=== PATIENT | female | born 1970 | race Caucasian/White ===

== ENCOUNTER → 2017-06-21 | Outpatient (CLI) | payer OTHER ==
--- NOTE | 2017-06-21 08:52 | US ---
EXAMINATION TYPE: US abdomen complete DATE OF EXAM: 06/21/2017 COMPARISON: Gallbladder US 10/20/2016 CLINICAL HISTORY: R19.04 Left lower quadrant abd swelling mass lump. EXAM MEASUREMENTS: Liver Length: 20.4 cm Gallbladder Wall: Surgically absent CBD: .7 cm Spleen: 111.0 cm Right Kidney: 14.4 x 5.9 x 5.3 cm Left Kidney: 13.2 x 6.4 x 7.2 cm Pancreas: wnl Liver: Enlarged, Increased attenuation, decreased visualization of vessels suggestive of fatty infil trate Gallbladder: Surgically absent Evidence for sonographic Patiño's sign: no CBD: wnl Spleen: wnl Right Kidney: 1.8 x 1.7 x 2.1 probable cyst Mid, medial aspect of kidney Left Kidney: 5.8 x 4.8 x 5.4 cyst upper pole; 3.4 x 3.6 x 3.8 cm cyst mid, lateral aspect Upper IVC: wnl Abd Aorta: wnl as seen Technically challenging due to larger body habitus. Patient indicated lump below umbilicus at scar; no break seen in abdominal wall at rest or during crunch maneuver. IMPRESSION: 1. Bilateral hypoechoic renal lesions are seen by previous CT scan and suggestive of renal cysts. Hyp oechoic nodule on the right does not meet the criteria of a simple cyst by ultrasound which is felt t echnical. 2. No diagnostic evidence of hernia. Correlate with CT scan as clinically warranted.
== END | disposition home or self-care (01) ==
LOC: RADUSWWP 07:39
PROVIDERS: ATTEND Family Medicine
DX: R16.0 Hepatomegaly, not elsewhere classified (principal)
CPT/HCPCS: 76700

== ENCOUNTER → 2017-07-09 | Outpatient (CLI) | payer OTHER ==
--- NOTE | 2017-07-09 10:49 | CT ---
EXAMINATION TYPE: CT abdomen pelvis w con DATE OF EXAM: 07/09/2017 COMPARISON: NONE HISTORY: Left lower quadrant abdominal swelling, mass and lump CT DLP: 3830 mGycm Automated exposure control for dose reduction was used. CONTRAST: CT scan of the abdomen pelvis is performed with IV Contrast, patient injected with 100 mL of Omnipaqu e 300. FINDINGS- LUNG BASES- No significant abnormality is appreciated. LIVER/GB-previous cholecystectomy clips are noted. Liver measures 24 cm and appears to be enlarged. PANCREAS- No gross abnormality is seen. SPLEEN- No gross abnormality is seen. Accessory spleen noted. ADRENALS- No gross abnormality is seen. KIDNEYS/BLADDER-there are 3 right-sided renal calculi all measuring less than 5 mm with no evidence o f obstruction. There are multiple hypodense lesions involving both kidneys largest on the left upper pole measuring 6 cm and 2 Hounsfield units compatible simple cyst. Smaller lesions are too small to accurately elvis cterize.. There are 2 left-sided renal calculi measuring less than 5 mm with no obstruction. BOWEL-nonspecific gas pattern. Suspect a duodenal diverticulum involving the third portion duodenum. LYMPH NODES- No greater than 1cm abdominal or pelvic lymph nodes are appreciated. OSSEOUS STRUCTURES- No significant abnormality is seen. OTHER- subcentimeter hypodensities within the left adnexa likely related to left ovarian follicles o r cysts. Aorta of normal caliber. 1.4 cm splenic artery aneurysm incidentally noted. Small fat-containing. Umbilical hernia. Additionally within the anterior subcutaneous tissues at the level along the upper margin of the bladder is a poorly defined fatty attenuation measuring 4.7 x 3.5 cm. There is an ill-defined attenuation crosses the anterior abdominal wall may represent mild infla mmatory change. This could represent extension of a small hernia sac. A lipoma also the differential diagnosis correlate clinically. IMPRESSION- 1. Within the anterior subcutaneous tissues at the level along the upper margin of the bladder is a p oorly defined fatty attenuation measuring 4.7 x 3.5 cm. There is an ill-defined attenuation crosses t he anterior abdominal wall may represent mild inflammatory change. This could represent extension of a small hernia sac as there appears to be a fascial defect noted on sagittal image 61. Correlate for pain as there appears to be mild increased attenuation suggestive of mild inflammatory change. No bow el contained within the suspected hernia sac. A lipoma less likely consideration but also in the diff erential diagnosis correlate clinically. 2. Nonobstructing bilateral renal calculi with multiple bilateral renal lesions as discussed above. 3. Hepatomegaly
== END | disposition home or self-care (01) ==
LOC: RADCTMAIN 07:46
PROVIDERS: ATTEND Family Medicine
DX: N20.0 Calculus of kidney (principal); N28.9 Disorder of kidney and ureter, unspecified; R16.0 Hepatomegaly, not elsewhere classified
CPT/HCPCS: 74177; Q9967

== ENCOUNTER → 2017-10-15 | Outpatient (CLI) | payer OTHER ==
[2017-10-15 09:50] LABS: Basophils # (A) 0.1 k/uL (0-0.2); Basophils % (A) 1 %; CH 31.5; CHCM 33.3; Eosinophils # (A) 0.5 k/uL (0-0.7); Eosinophils % (A) 5 %; HCT 51.9 % (34.0-46.0); Luc % (Auto) 1; Lymphocytes # (A) 2.8 k/uL (1.0-4.8); Lymphocytes % (A) 27 %; MCH 31.2 pg (25.0-35.0); MCHC 32.8 g/dL (31.0-37.0); Mean Platelet Volume 7.5; Monocytes # (A) 0.5 k/uL (0-1.0); Monocytes % (A) 5 %; Neutrophils # (A) 6.4 k/uL (1.3-7.7); Neutrophils % (A) 62 %; RBC 5.46 m/uL (3.80-5.40); RDW 14.2 % (11.5-15.5); WBC 10.4 k/uL (3.8-10.6); WBC (Perox) 10.04
== END | disposition home or self-care (01) ==
LOC: LABWHC1 08:36
PROVIDERS: ATTEND Surgery
DX: Z01.810 Encounter for preprocedural cardiovascular examination (principal); Z01.812 Encounter for preprocedural laboratory examination; K43.0 Incisional hernia with obstruction, without gangrene
CPT/HCPCS: 85025; 93005

== ENCOUNTER 2018-03-29 12:36 | Emergency (ER) | payer OTHER ==
[2018-03-29 12:58] VITALS: RESP 18
[2018-03-29] MEDS ORDERED: IPRATROPIUM-ALBUTEROL 3 ML NEB INHALATION STA (13:12)
[2018-03-29] MEDS ORDERED: traMADol 50 MG TAB PO STA (13:12)
[2018-03-29] MEDS ORDERED: predniSONE 20 MG TAB PO STA (13:12)
--- NOTE | 2018-03-29 13:16 | ED ---
General Adult HPI - General Chief complaint: Shortness of Breath Stated complaint: Hx COPD, CHRISTIANE, DIF WALKING Time Seen by Provider: 03/29/18 13:00 Source: patient Mode of arrival: wheelchair Limitations: no limitations - History of Present Illness Initial comments: Patient is a 47-year-old female with a history of COPD, current smoker who presents with a chief complaint of lower back pain and shortness of breath. Lower back pain has been going on since Wednesday. She cannot identify an inciting incident. Sitting erect and walking are exacerbating factors. Resting and leaning forward or alleviating. Timing is constant. Patient states she's been short of breath starting today. She admits to cough and sputum production that is white in color. Patient denies fever, radiation of her back pain, bowel or bladder incontinence, or saddle anesthesia. - Related Data Home Medications Medication Instructions Recorded Confirmed Albuterol Sulfate [Proair Hfa] 2 puff INHALATION RT-Q4H PRN 09/04/14 03/29/18 ALPRAZolam [Xanax] 0.25 mg PO Q8H PRN 10/25/14 03/29/18 Fluticasone/Salmeterol [Advair 1 puff INHALATION RT-BID 10/20/16 03/29/18 250-50 Diskus] Previous Rx's Medication Instructions Recorded Azithromycin [Zithromax Z-pack] 250 mg PO DIRECTED #6 tab 03/29/18 predniSONE 50 mg PO DAILY #4 tablet 03/29/18 traMADol HCl [Ultram] 50 mg PO Q6HR PRN 3 Days #12 tab 03/29/18 Allergies Allergy/AdvReac Type Severity Reaction Status Date / Time codeine AdvReac Nausea & Verified 03/29/18 13:44 Vomiting Review of Systems ROS Statement: Those systems with pertinent positive or pertinent negative responses have been documented in the HPI. ROS Other: All systems not noted in ROS Statement are negative. Respiratory: Reports: cough, dyspnea Past Medical History Past Medical History: Asthma, COPD, Hyperlipidemia, Musculoskeletal Disorder, Pneumonia, Renal Disease, Respiratory Disorder Additional Past Medical History / Comment(s): Home O2 at 2L/[place] prn, RIGHT RENAL CALCULI & gallstone, ANEURYSM RT LUNG in the past but patient thinks it may have resolved, DDD, PAIN LT LOWER BACK, herniated discs. History of Any Multi-Drug Resistant Organisms: None Reported Past Surgical History: Section, Orthopedic Surgery, Tubal Ligation, Uterine Ablation Additional Past Surgical History / Comment(s): X2, ANI CARPAL TUNNEL, PAST HX OF RT NEPHROSTOMY TUBE, lithotripsy, PAST PAIN INJ.'S Past Anesthesia/Blood Transfusion Reactions: Motion Sickness, Postoperative Nausea & Vomiting (PONV) Past Psychological History: Anxiety, Bipolar Smoking Status: Current every day smoker - Past Family History Father Family Medical History: Cancer Mother Family Medical History: Cancer General Exam Limitations: no limitations General appearance: alert, in no apparent distress Head exam: Present: atraumatic, normocephalic Eye exam: Present: normal appearance ENT exam: Present: normal exam, mucous membranes moist Neck exam: Present: normal inspection Respiratory exam: Present: decreased breath sounds. Absent: respiratory distress, wheezes Cardiovascular Exam: Present: regular rate, normal rhythm GI/Abdominal exam: Present: soft. Absent: distended, tenderness Rectal exam: Present: deferred Extremities exam: Present: normal inspection Back exam: Present: normal inspection, paraspinal tenderness. Absent: CVA tenderness (R), CVA tenderness (L) Neurological exam: Present: alert, oriented X3 Psychiatric exam: Present: normal affect, normal mood Skin exam: Present: warm, dry, intact Course Vital Signs 03/29/18 03/29/18 03/29/18 12:56 13:21 13:32 Temperature 98.3 F Pulse Rate 92 92 92 Respiratory 18 Rate Blood Pressure 125/74 O2 Sat by Pulse 90 L Oximetry 03/29/18 03/29/18 13:42 13:56 Temperature Pulse Rate 88 90 Respiratory Rate Blood Pressure O2 Sat by Pulse Oximetry Medical Decision Making - Medical Decision Making Patient presents with a chief complaint of shortness of breath and low back pain. Lower back pain is nontraumatic, and appears musculoskeletal in nature. Considered spinal stenosis as an etiology the patient does not have any previous history of the same. Initial vital signs are stable, patient is in no acute distress. She'll be given her first dose of prednisone and breathing treatments in the emergency department will get chest x-ray, and urinalysis for evaluation. 2:35 PM Lab evaluation of this patient shows soft evidence of a urinary tract infection , there are 12 WBCs however samples contaminated. Sample sent for a urine culture. Patient will be treated with prednisone, albuterol, and azithromycin for shortness of breath and suspected bronchitis. Patient prescribed Ultram for 3 days for back pain. She was instructed to follow up with primary care in 1-2 days, return to the emergency department if her symptoms worsen or change. On reevaluation, patient states her breathing is improved. - Lab Data Lab Results 03/29/18 Range/Units 13:56 Urine Color Yellow Urine Appearance Cloudy H (Clear) Urine pH 6.0 (5.0-8.0) Ur Specific [place] 1.010 (1.001-1.035) Urine Protein Negative (Negative) Urine Glucose (UA) Negative (Negative) Urine Ketones Negative (Negative) Urine Blood Negative (Negative) Urine Nitrite Negative (Negative) Urine Bilirubin Negative (Negative) Urine Urobilinogen <2.0 (<2.0) mg/dL Ur Leukocyte Esterase Moderate H (Negative) Urine RBC 2 (0-5) /hpf Urine WBC 17 H (0-5) /hpf Ur Squamous Epith Cells 10 H (0-4) /hpf Urine Bacteria Occasional H (None) /hpf Urine Mucus Rare H (None) /hpf Disposition Clinical Impression: Bronchitis, Lower back pain Disposition: HOME SELF-CARE Condition: Good Instructions: Bronchiolitis (ED), Low Back Strain (ED), Lower Back Exercises ( ED) Prescriptions: Azithromycin [Zithromax Z-pack] 250 mg PO DIRECTED #6 tab predniSONE 50 mg PO DAILY #4 tablet traMADol HCl [Ultram] 50 mg PO Q6HR PRN 3 Days #12 tab PRN Reason: Pain Is patient prescribed a controlled substance at d/c from ED?: Yes If prescribed controlled substance>3 days was MAPS reviewed?: Yes When asked, does pt state using other controlled substances?: Yes Referrals: Blanca Enriquez MD [Primary Care Provider] - 1-2 days
[2018-03-29 14:10] LABS: Appearance,Urine Cloudy (Clear); Bacteria,Urine Occasional /hpf; Bilirubin,Urine Negative (Negative); Blood,Urine Negative (Negative); Color,Urine Yellow; Glucose,Urine (UA) Negative (Negative); Ketones,Urine Negative (Negative); Leukocyte Esterase,Urine Moderate (Negative); Mucus,Urine Rare /hpf; Nitrite,Urine Negative (Negative); Protein,Urine Negative (Negative); RBC,Urine 2 /hpf (0-5); Squamous Epithelial Cell,Urine 10 /hpf (0-4); Urobilinogen,Urine <2.0 mg/dL (<2.0); WBC,Urine 17 /hpf (0-5)
--- NOTE | 2018-03-29 14:27 | XR ---
EXAMINATION TYPE: XR chest 2V DATE OF EXAM: 03/29/2018 COMPARISON: 10/25/2016 HISTORY: Shortness of breath. History of COPD. TECHNIQUE: Frontal and lateral views of the chest are obtained. FINDINGS: There is no focal air space opacity, pleural effusion, or pneumothorax seen. The cardiac silhouette size is within normal limits. The osseous structures are intact. Minimal chromic clavicu lar arthropathy is seen. IMPRESSION: No acute cardiopulmonary process.
[2018-03-29 14:51] VITALS: BP 98/56; PULSE 84; TEMP 98
== END 2018-03-29 14:51 | disposition home or self-care (01) ==
LOC: EC 12:36
DX: J44.9 Chronic obstructive pulmonary disease, unspecified (principal); M54.5 Low back pain; F41.9 Anxiety disorder, unspecified; F17.200 Nicotine dependence, unspecified, uncomplicated; Z87.01 Personal history of pneumonia (recurrent); Z79.51 Long term (current) use of inhaled steroids; Z88.5 Allergy status to narcotic agent
CPT/HCPCS: 94644; 81001; 71046; 99285; J7512

== ENCOUNTER 2018-05-29 10:25 | Observation (INO) | payer OTHER ==
[2018-05-29] MEDS ORDERED: METOCLOPRAMIDE 5 MG/ML 2 ML VIAL IVP STA (11:03)
[2018-05-29] MEDS ORDERED: FAMOTIDINE 20 MG/2 ML VIAL IV STA (11:03)
--- NOTE | 2018-05-29 11:05 | ED ---
General Adult HPI - General Chief complaint: Nausea/Vomiting/Diarrhea Stated complaint: Dizzy/vomiting Time Seen by Provider: 05/29/18 11:00 Source: patient, RN notes reviewed Mode of arrival: wheelchair Limitations: no limitations - History of Present Illness Initial comments: Patient is a pleasant 48-year-old female presenting to the emergency department with nausea vomiting diarrhea. Onset was yesterday morning. Patient has had multiple episodes of both vomiting and diarrhea however vomiting has been more so. No abdominal pain. Patient does feel somewhat achy all over. No fevers. No history of chronic problems previously. - Related Data Home Medications Medication Instructions Recorded Confirmed Albuterol Sulfate [Proair Hfa] 2 puff INHALATION RT-Q4H PRN 09/04/14 03/29/18 ALPRAZolam [Xanax] 0.25 mg PO Q8H PRN 10/25/14 03/29/18 Fluticasone/Salmeterol [Advair 1 puff INHALATION RT-BID 10/20/16 03/29/18 250-50 Diskus] Previous Rx's Medication Instructions Recorded Albuterol Nebulized [Ventolin 2.5 mg INHALATION Q4H #30 nebu 03/29/18 Nebulized] Azithromycin [Zithromax Z-pack] 250 mg PO DIRECTED #6 tab 03/29/18 predniSONE 50 mg PO DAILY #4 tablet 03/29/18 traMADol HCl [Ultram] 50 mg PO Q6HR PRN 3 Days #12 tab 03/29/18 Allergies Allergy/AdvReac Type Severity Reaction Status Date / Time codeine AdvReac Nausea & Verified 05/29/18 10:51 Vomiting Review of Systems ROS Statement: Those systems with pertinent positive or pertinent negative responses have been documented in the HPI. ROS Other: All systems not noted in ROS Statement are negative. Constitutional: Denies: fever, chills Eyes: Denies: eye pain ENT: Denies: ear pain Respiratory: Denies: cough Cardiovascular: Denies: chest pain Endocrine: Denies: fatigue Gastrointestinal: Reports: nausea, vomiting, diarrhea. Denies: abdominal pain Genitourinary: Denies: dysuria Musculoskeletal: Denies: back pain Skin: Denies: rash Neurological: Denies: confusion Past Medical History Past Medical History: Asthma, COPD, Hyperlipidemia, Musculoskeletal Disorder, Pneumonia, Renal Disease, Respiratory Disorder Additional Past Medical History / Comment(s): Home O2 at 2L/[place] prn, RIGHT RENAL CALCULI & gallstone, ANEURYSM RT LUNG in the past but patient thinks it may have resolved, DDD, PAIN LT LOWER BACK, herniated discs. History of Any Multi-Drug Resistant Organisms: None Reported Past Surgical History: Section, Orthopedic Surgery, Tubal Ligation, Uterine Ablation Additional Past Surgical History / Comment(s): X2, ANI CARPAL TUNNEL, PAST HX OF RT NEPHROSTOMY TUBE, lithotripsy, PAST PAIN INJ.'S Past Anesthesia/Blood Transfusion Reactions: Motion Sickness, Postoperative Nausea & Vomiting (PONV) Past Psychological History: Anxiety, Bipolar Smoking Status: Current every day smoker Past Alcohol Use History: None Reported Past Drug Use History: None Reported - Past Family History Father Family Medical History: Cancer Mother Family Medical History: Cancer General Exam Limitations: no limitations General appearance: alert, in no apparent distress, obese Head exam: Present: atraumatic Eye exam: Present: normal appearance, PERRL ENT exam: Present: normal oropharynx Neck exam: Present: normal inspection Respiratory exam: Present: normal lung sounds bilaterally Cardiovascular Exam: Present: regular rate, normal rhythm GI/Abdominal exam: Present: soft. Absent: distended, tenderness, guarding, rebound Extremities exam: Present: normal inspection Neurological exam: Present: alert Psychiatric exam: Present: normal affect, normal mood Skin exam: Present: normal color Course Vital Signs 05/29/18 05/29/18 05/29/18 10:48 12:38 13:45 Temperature 98.4 F Pulse Rate 83 75 77 Respiratory 18 18 18 Rate Blood Pressure 91/68 109/77 86/49 O2 Sat by Pulse 91 L 97 92 L Oximetry 05/29/18 05/29/18 14:02 14:48 Temperature 98.0 F Pulse Rate 67 69 Respiratory 18 18 Rate Blood Pressure 100/57 101/65 O2 Sat by Pulse 94 L 93 L Oximetry Medical Decision Making - Medical Decision Making Patient was earlier reevaluated and slightly improved. Patient again reevaluated following second dose of medication and still having symptoms. Patient was able to get up however still feels nauseated and dizzy. Patient does not feel comfortable with discharge home. Case was discussed in detail with Dr. Aguilera, who will admit for Blanca Chapman. - Lab Data Result diagrams: 05/29/18 11:27 05/29/18 11:27 Lab Results 05/29/18 05/29/18 Range/Units 11:27 11:27 WBC 11.3 H (3.8-10.6) k/uL RBC 5.36 (3.80-5.40) m/uL Hgb 16.9 H (11.4-16.0) gm/dL Hct 49.0 H (34.0-46.0) % MCV 91.3 (80.0-100.0) fL MCH 31.5 (25.0-35.0) pg MCHC 34.5 (31.0-37.0) g/dL RDW 13.0 (11.5-15.5) % Plt Count 275 (150-450) k/uL Neutrophils % 75 % Lymphocytes % 17 % Monocytes % 5 % Eosinophils % 2 % Basophils % 1 % Neutrophils # 8.5 H (1.3-7.7) k/uL Lymphocytes # 1.9 (1.0-4.8) k/uL Monocytes # 0.5 (0-1.0) k/uL Eosinophils # 0.2 (0-0.7) k/uL Basophils # 0.1 (0-0.2) k/uL Sodium 140 (137-145) mmol/L Potassium 4.4 (3.5-5.1) mmol/L Chloride 108 H (98-107) mmol/L Carbon Dioxide 24 (22-30) mmol/L Anion Gap 8 mmol/L BUN 16 (7-17) mg/dL Creatinine 0.80 (0.52-1.04) mg/dL Est GFR (CKD-EPI)AfAm >90 (>60 ml/min/1.73 sqM) Est GFR (CKD-EPI)NonAf 88 (>60 ml/min/1.73 sqM) Glucose 118 H (74-99) mg/dL Calcium 9.7 (8.4-10.2) mg/dL Total Bilirubin 0.7 (0.2-1.3) mg/dL AST 24 (14-36) U/L ALT 37 (9-52) U/L Alkaline Phosphatase 82 (38-126) U/L Total Protein 7.1 (6.3-8.2) g/dL Albumin 4.5 (3.5-5.0) g/dL Amylase 56 (30-110) U/L Lipase 100 (23-300) U/L Disposition Clinical Impression: Nausea and vomiting, Vertigo Disposition: ADMITTED IP TO THIS HOSP Is patient prescribed a controlled substance at d/c from ED?: No Referrals: Blanca Enriquez MD [Primary Care Provider] - 1-2 days Decision Time: 14:59
[2018-05-29] MEDS: SODIUM CHLORIDE 0.9% 2,000 ML IV STA ×2 (11:21→13:45)
[2018-05-29 11:43] LABS: Basophils # (A) 0.1 k/uL (0-0.2); Basophils % (A) 1 %; Eosinophils # (A) 0.2 k/uL (0-0.7); Eosinophils % (A) 2 %; HGB 16.9 gm/dL (11.4-16.0); Lymphocytes # (A) 1.9 k/uL (1.0-4.8); Lymphocytes % (A) 17 %; MCH 31.5 pg (25.0-35.0); MCHC 34.5 g/dL (31.0-37.0); MCV 91.3 fL (80.0-100.0); Mean Platelet Volume 7.1; Monocytes # (A) 0.5 k/uL (0-1.0); Monocytes % (A) 5 %; Neutrophils # (A) 8.5 k/uL (1.3-7.7); Neutrophils % (A) 75 %; Platelet Count 275 k/uL (150-450); RBC 5.36 m/uL (3.80-5.40); WBC 11.3 k/uL (3.8-10.6)
[2018-05-29 11:53] LABS: ALT 37 U/L (9-52); AST 24 U/L (14-36); Albumin 4.5 g/dL (3.5-5.0); Alkaline Phosphatase 82 U/L (38-126); Amylase 56 U/L (30-110); Anion Gap 8 mmol/L; Blood Urea Nitrogen 16 mg/dL (7-17); Calcium 9.7 mg/dL (8.4-10.2); Carbon Dioxide 24 mmol/L (22-30); Chloride 108 mmol/L (98-107); Glucose 118 mg/dL (74-99); Lipase 100 U/L (23-300); Potassium 4.4 mmol/L (3.5-5.1); Sodium 140 mmol/L (137-145); Total Bilirubin 0.7 mg/dL (0.2-1.3); Total Protein 7.1 g/dL (6.3-8.2)
[2018-05-29] MEDS ORDERED: MECLIZINE 12.5 MG TAB PO STA ×2 (12:19→13:14)
[2018-05-29] MEDS ORDERED: LORazepam 2 MG/ML INJ IV STA (13:14)
[2018-05-29] MEDS ORDERED: SCOPOLAMINE 1.5MG/72HR PATCH TRANSDERM STA (13:14)
[2018-05-29] MEDS ORDERED: MECLIZINE 25 MG TAB PO PRN (15:01)
--- NOTE | 2018-05-29 16:03 | CT ---
EXAMINATION TYPE: CT brain wo con DATE OF EXAM: 05/29/2018 COMPARISON: CT brain 04/08/2010 HISTORY: Vertigo CT DLP: 955.4 mGycm. Automated Exposure Control for Dose Reduction was Utilized. TECHNIQUE: CT scan of the head is performed without contrast. FINDINGS: There is no acute intracranial hemorrhage, mass effect, or midline shift identified. The ventricles and sulci are within normal limits in size. The globes are intact and the visualized sin uses are clear. IMPRESSION: No acute intracranial hemorrhage, mass effect, or midline shift is seen.
[2018-05-29 18:17] VITALS: BMI 41.1
[2018-05-29] MEDS: SODIUM CHLORIDE 0.9% 1,000 ML IV SCH (18:29)
[2018-05-29] MEDS: METOCLOPRAMIDE 5 MG/ML 2 ML VIAL IVP SCH ×2 (18:33→23:28)
[2018-05-29] MEDS ORDERED: IPRATROPIUM-ALBUTEROL 3 ML NEB INHALATION PRN (21:36)
[2018-05-29] MEDS ORDERED: ALPRAZolam 0.25 MG TAB PO PRN (21:36)
[2018-05-29 22:40] LABS: Appearance,Urine Clear (Clear); Bacteria,Urine Moderate /hpf; Bilirubin,Urine Negative (Negative); Blood,Urine Negative (Negative); Color,Urine Light Yellow; Glucose,Urine (UA) Negative (Negative); Ketones,Urine Negative (Negative); Leukocyte Esterase,Urine Large (Negative); Mucus,Urine Rare /hpf; Nitrite,Urine Negative (Negative); Protein,Urine Negative (Negative); Specific Gravity,Urine 1.007 (1.001-1.035); Squamous Epithelial Cell,Urine 2 /hpf (0-4); Urobilinogen,Urine <2.0 mg/dL (<2.0); WBC,Urine 34 /hpf (0-5)
[2018-05-29 22:53] LABS: Amphetamine Screen,Urine Not Detected (NotDetected); Barbiturate Screen,Urine Not Detected (NotDetected); Benzodiazepines Screen,Urine Not Detected (NotDetected); Cocaine Screen,Urine Not Detected (NotDetected); Methadone Screen, Urine Not Detected (NotDetected); Opiate Screen,Urine Not Detected (NotDetected); Oxycodone Screen, Urine Not Detected (NotDetected); Phencyclidine Screen,Urine Not Detected (NotDetected); Tricyclic Antidepressant,Urine Not Detected (NotDetected); Urn Cannabinoid Scrn Not Detected (NotDetected)
--- NOTE | 2018-05-29 23:57 | HP ---
HISTORY AND PHYSICAL DATE OF SERVICE: 05/28/2018 CHIEF COMPLAINTS: Vertigo, nausea and vomiting. HISTORY OF PRESENT ILLNESS: This 48-year-old woman with past medical history of COPD, asthma, history of DJD , history of pneumonia, history of chronic hypoxic respiratory failure on home O2, history of anxiety, bipolar, being followed by Dr. Blanca Enriquez in the outpatient setting was admitted with nausea. The patient apparently living in a friend's house and the patient had a feeling of dizziness and nausea which is recurring in nature today and the patient has multiple episodes of vomiting and diarrhea as well. The patient came to [facility] and was admitted for further evaluation and treatment. The patient also complaining of some diplopia also. There is no history of fever, rigors or chills at this time. PAST MEDICAL HISTORY: Asthma, COPD, hyperlipidemia, DJD, history of pneumonia, history of chronic hypoxic respiratory failure, history of anxiety bipolar. MEDICATIONS: Prior to admission include home medications are: 1. Prednisone 50 mg p.o. daily p.r.n. 2. Advair 250/50 1 puff b.i.d. 3. ProAir 2 puffs q.4h p.r.n. 4. Xanax 0.25 q8 p.r.n. ALLERGIES: CODEINE. FAMILY HISTORY: History of pancreatic cancer in the family. SOCIAL HISTORY: Previous history of smoking, history of 2 packs smoking. No history of alcohol intake. REVIEW OF SYSTEMS: ENT: As mentioned earlier. Cardiovascular: No angina or palpitations. Respiration: As mentioned earlier. GI: No nausea and vomiting or diarrhea. : As mentioned earlier. Nervous system: As mentioned earlier. Allergy/ Immunology: As mentioned earlier. Hematology/Oncology: No history of anemia. Endocrine: No history of diabetes or hypothyroidism. CONSTITUTIONAL: As mentioned earlier. Dermatology: Negative. Rheumatology: Negative. Psychiatry: As mentioned earlier. PHYSICAL EXAM: Patient is alert, oriented x3. Pulse 68. Blood pressure 118/73, respiration 18 , temperature 97.6, pulse ox 88% on room air. Conjunctivae normal. Oral mucosa moist. Neck is no jugular venous distention. No lymph node enlargement. No carotid bruit. Obese. Cardiovascular system: S1, S2 muffled. No S3, no S4. Respiratory: Breath sounds diminished at the bases. Bilateral scattered rhonchi and crackles. ABDOMEN: Soft, obese, nontender. No mass palpable. Legs no edema and no swelling. NERVOUS SYSTEM: Higher functions as mentioned earlier. Cranial nerves: Minimal left sided lateral rectus palsy and dysconjugation also present. No nystagmus noted. Diplopia noted. No other cranials nerves are noted. Otherwise power is 5/5 and reflexes are normal. Minimal incoordination on the left side noted. Skin no ulcer, rash or bleeding. Dermatology: Negative. Rheumatology: Negative. Psychiatry: As mentioned earlier. Joints: No active deformity. No signs of sensory dysfunction. LAB INVESTIGATIONS: WBC 11.2, hemoglobin 16.9, and CT scan noted. ASSESSMENT: 1. Possible acute transient ischemic attack or acute stroke involving the vertebrobasilar system on the left. 2. Increased WBC. 3. History of nicotine dependence. 4. Asthma/chronic obstructive pulmonary disease. 5. Chronic hypoxic respiratory failure on home O2 2 L nasal cannula. 6. Hyperlipidemia. 7. Degenerative joint disease. 8. History of pneumonia. 9. History of renal disease. 10.History of cholecystectomy. 11.History anxiety, bipolar. 12.Obesity with body mass index of 41. RECOMMENDATIONS AND DISCUSSION: In this 48-year-old woman who presented with multiple complex medical issues, we will monitor the patient closely. I would recommend antiplatelet agents and as well as also recommend MRI of the brain. Neurology consultation. Neuro checks. Complete neurovascular workup. Guarded prognosis. Resume the home medications. Guarded prognosis because of multiple complex medical issues and further recommendations to follow. Copy of dictation forwarded to Dr. Blanca Enriquez, who is the primary physician. FORREST / CHAN: [phone] / MTDDesire
[2018-05-30] MEDS: SODIUM CHLORIDE 0.9% 1,000 ML IV SCH ×4 (06:24→23:24)
[2018-05-30] MEDS: METOCLOPRAMIDE 5 MG/ML 2 ML VIAL IVP SCH ×4 (06:24→23:23)
[2018-05-30] MEDS: PANTOPRAZOLE 40 MG TABLET PO SCH (06:24)
[2018-05-30 07:22] LABS: Basophils # (A) 0.1 k/uL (0-0.2); Basophils % (A) 1 %; Eosinophils # (A) 0.4 k/uL (0-0.7); Eosinophils % (A) 4 %; HGB 14.8 gm/dL (11.4-16.0); Lymphocytes # (A) 2.3 k/uL (1.0-4.8); Lymphocytes % (A) 28 %; MCH 31.3 pg (25.0-35.0); MCHC 33.5 g/dL (31.0-37.0); MCV 93.2 fL (80.0-100.0); Mean Platelet Volume 6.8; Monocytes # (A) 0.4 k/uL (0-1.0); Monocytes % (A) 4 %; Neutrophils % (A) 61 %; Platelet Count 222 k/uL (150-450); RBC 4.72 m/uL (3.80-5.40); RDW 13.5 % (11.5-15.5); WBC 8.3 k/uL (3.8-10.6)
[2018-05-30] MEDS: IPRATROPIUM-ALBUTEROL 3 ML NEB INHALATION SCH ×3 (07:42→18:51)
[2018-05-30] MEDS: SYMBICORT 160-4.5 MCG INHALER INHALATION SCH ×2 (07:42→18:51)
[2018-05-30 07:50] LABS: Anion Gap 4 mmol/L; Blood Urea Nitrogen 12 mg/dL (7-17); Calcium 8.3 mg/dL (8.4-10.2); Carbon Dioxide 25 mmol/L (22-30); Chloride 111 mmol/L (98-107); Cholesterol 195 mg/dL (<200); Glucose 101 mg/dL (74-99); HDL Cholesterol 29 mg/dL (40-60); LDL Cholesterol,Calculated 118 mg/dL (0-99); Potassium 4.1 mmol/L (3.5-5.1); Sodium 140 mmol/L (137-145); Triglycerides 242 mg/dL (<150)
[2018-05-30] MEDS: NICOTINE 14MG/24HR PATCH TRANSDERM SCH (08:35)
[2018-05-30] MEDS: HEPARIN SODIUM,PORCINE 5,000 UNIT/ML 1 ML VIAL SQ SCH ×2 (08:36→20:23)
--- NOTE | 2018-05-30 12:17 | US ---
EXAMINATION TYPE: US carotid duplex BILAT DATE OF EXAM: 05/30/2018 COMPARISON: NONE CLINICAL HISTORY: 48-year-old female stroke. Dizziness x 2 days TECHNIQUE: Carotid duplex ultrasound examination. Indirect Doppler criteria was utilized. FINDINGS: EXAM MEASUREMENTS: RIGHT: Peak Systolic Velocity (PSV) cm/sec ----- Right CCA: 67.8 ----- Right ICA: 64.9 ----- Right ECA: 62.1 ICA/CCA ratio: 1.0 RIGHT: End Diastole cm/sec ----- Right CCA: 22.3 ----- Right ICA: 23.3 ----- Right ECA: 6.2 LEFT: Peak Systolic Velocity (PSV) cm/sec ----- Left CCA: 64.3 ----- Left ICA: 86.3 ----- Left ECA: 83.7 ICA/CCA ratio: 1.3 LEFT: End Diastole cm/sec ----- Left CCA: 25.4 ----- Left ICA: 25.4 ----- Left ECA: 11.1 VERTEBRALS (direction of flow): Right Vertebral: Antegrade Left Vertebral: Antegrade Rhythm: Normal Surveyor notes: Mild atherosclerotic changes. No stenosis seen. IMPRESSION: No hemodynamically significant stenosis appreciated in either internal carotid artery. Criteria for Assigning % of Stenosis / Diameter reduction (Estimation based on the indirect measurements of the internal carotid artery velocities (ICA PSV). 1. Normal (no stenosis)=ICA PSV < 125 cm/s: ratio < 2.0: ICA EDV<40 cm/s. 2. Less than 50% stenosis=ICA PSV < 125 cm/s: ratio < 2.0: ICA EDV<40 cm/s. 3. 50 to 69% stenosis=ICA PSV of 125 to 230 cm/s: ration 2.0 ? 4.0: ICA EDV 40-100 cm/s. 4. Greater than 70% stenosis to near occlusion= ICA PSV > 230 cm/s: ratio > 4.0: ICA EDV > 100 cm/s. 5. Near occlusion= ICA PSV velocities may be low or undetectable: variable ratio and ICA EDV. 6. Total occlusion=unable to detect flow.
--- NOTE | 2018-05-30 13:11 | ECHOF ---
Referral Reason:Stroke MEASUREMENTS -------- HEIGHT: 165.1 cm WEIGHT: 114.3 kg BP: 107/63 IVSd: 1.1 cm (0.6 - 1.1) LVIDd: 4.3 cm (3.9 - 5.3) LVPWd: 1.1 cm (0.6 - 1.1) IVSs: 1.3 cm LVIDs: 3.1 cm LVPWs: 1.3 cm RVIDd: 3.6 cm (< 3.3) LAESV Index (A-L): 33.35 ml/m Ao Diam: 2.7 cm (2.0 - 3.7) LA Diam: 4.2 cm (2.7 - 3.8) AV Cusp: 2.1 cm (1.5 - 2.6) EPSS: 0.5 cm MV E Lazarus: 0.89 m/s MV DecT: 386 ms MV A Lazarus: 0.67 m/s MV E/A Ratio: 1.33 RAP: 5.00 mmHg RVSP: 26.41 mmHg MV EF SLOPE: 127.15 mm/s (70 - 150) MV EXCURSION: 1.56 cm (> 18.000) FINDINGS -------- Sinus rhythm. This was a technically difficult study with suboptimal views. The left ventricular size is normal. There is borderline concentric left ventricular hypertrophy. Overall left ventricular systolic function is normal with, an EF between 55 - 60 %. The right ventricle is normal in size and function. LA is midly dilated 29-33ml/m2. The right atrium is normal in size. 3ml of Lumason was utilized for enhancement of images. Aortic valve is trileaflet and is mildly thickened. There is no evidence of aortic regurgitation. There is no evidence of aortic stenosis. The mitral valve leaflets are mildly thickened. There is trace to mild mitral regurgitation. Trace tricuspid regurgitation present. Right ventricular systolic pressure is normal at < 35 mmHg. There is no evidence of pulmonary hypertension. Trace/mild (physiologic) pulmonic regurgitation. The aortic root size is normal. Normal inferior vena cava with normal inspiratory collapse consistent with estimated right atrial pre ssure of 5 mmHg. There is no pericardial effusion. CONCLUSIONS -------- 1. Sinus rhythm. 2. This was a technically difficult study with suboptimal views. 3. The left ventricular size is normal. 4. There is borderline concentric left ventricular hypertrophy. 5. Overall left ventricular systolic function is normal with, an EF between 55 - 60 %. 6. LA is midly dilated 29-33ml/m2. 7. 3ml of Lumason was utilized for enhancement of images. 8. Aortic valve is trileaflet and is mildly thickened. 9. The mitral valve leaflets are mildly thickened. 10. There is trace to mild mitral regurgitation. 11. Trace tricuspid regurgitation present. 12. Right ventricular systolic pressure is normal at < 35 mmHg. 13. There is no evidence of pulmonary hypertension. 14. Trace/mild (physiologic) pulmonic regurgitation. 15. The aortic root size is normal. 16. There is no pericardial effusion. [employer]OLS ENGINEER: Dre Lima RDCS
--- NOTE | 2018-05-30 14:02 | XR ---
EXAMINATION TYPE: XR chest 1V portable DATE OF EXAM: 05/30/2018 COMPARISON: Prior chest 03/29/2018 HISTORY: Prior chest x-ray 03/29/2018 TECHNIQUE: Single frontal view of the chest is obtained. FINDINGS: There is no focal air space opacity, pleural effusion, or pneumothorax seen. The cardiac silhouette size is within normal limits. The osseous structures are intact. IMPRESSION: No acute process.
--- NOTE | 2018-05-30 16:57 | MR ---
EXAMINATION TYPE: MR brain wo/w con DATE OF EXAM: 05/30/2018 COMPARISON: None HISTORY: Vertigo, brain stem stroke, Gadavist 11.5 ml TECHNIQUE: Multiplanar, multisequence images of the brain and brainstem is performed without and with IV contras t, utilizing 11.5 mL intravenous Gadavist . FINDINGS: Ventricles of normal size. There is no mass effect nor midline shift. There is no sign of intracrania l hemorrhage. Brainstem is intact. Corpus callosum is intact. There is a 16 x 5 mm area of increased signal on the T2 and FLAIR images in the right side periventricular white matter adjacent to the righ t lateral ventricle. The contrast images show no pathologic enhancement. There is no evidence of joao ical infarct. There is mucosal thickening left maxillary sinus. IMPRESSION: Right hemisphere white matter lesion adjacent to the lateral ventricle is nonspecific. Th is could relate to demyelinating disease or lacunar infarct. No evidence of brainstem infarct. Left maxillary sinusitis.
[2018-05-30] MEDS: ACETAMINOPHEN TAB 500 MG TAB PO PRN (16:58)
--- NOTE | 2018-05-30 20:46 | P.CNNES ---
History of Present Illness Consult date: 05/30/18 History of Present Illness: The patient is a 48-year-old right-handed white female who states that Wednesday morning she woke up went out with a friend and came back home and then she again went into her car to visit and when she got out of the car she developed acute vertigo with nausea. She walked into her friend's house and if the vertigo became more severe. She states that she's never had this type of dizziness in the past. This occurred Wednesday and on Wednesday morning it improved and she still had some vertigo and nausea. She did come to the hospital on Wednesday. Today she is feeling much better. There is no vertigo. She does have a sense of disequilibrium when she moves her head too quickly. The vertigo in the past couple of days have been positional. She has no nausea today. She denied any visual changes. She denied any focal weakness or numbness or any other neurologic complaint. She has not she reports that she is had right arm numbness off and on for several years which lasts only for 1 minute. He had an MRI of the brain which showed a white matter lesion which was nonspecific. She had a carotid ultrasound which did not show any significant stenosis. Review of Systems Eyes: denies blurred vision, denies pain Ears, nose, mouth and throat: Denies headache, Denies sore throat Respiratory: Denies cough Gastrointestinal: Denies abdominal pain, Denies diarrhea, Denies nausea, Denies vomiting Genitourinary: Denies dysuria, Denies hematuria Musculoskeletal: Denies myalgias Integumentary: Denies pruritus, Denies rash Neurological: Denies numbness, Denies weakness Psychiatric: Denies anxiety, Denies depression Past Medical History Past Medical History: Asthma, COPD, Hyperlipidemia, Musculoskeletal Disorder, Pneumonia, Renal Disease, Respiratory Disorder Additional Past Medical History / Comment(s): Home O2 at 2L/[place] prn, RIGHT RENAL CALCULI & gallstone, ANEURYSM RT LUNG in the past but patient thinks it may have resolved, DDD, PAIN LT LOWER BACK, herniated discs. History of Any Multi-Drug Resistant Organisms: None Reported Past Surgical History: Section, Cholecystectomy, Orthopedic Surgery, Tubal Ligation, Uterine Ablation Additional Past Surgical History / Comment(s): X2, ANI CARPAL TUNNEL, PAST HX OF RT NEPHROSTOMY TUBE, lithotripsy, PAST PAIN INJ.'S Past Anesthesia/Blood Transfusion Reactions: Motion Sickness, Postoperative Nausea & Vomiting (PONV) Past Psychological History: Anxiety, Bipolar Additional Psychological History / Comment(s): Pt resides with her spouse and has a autistic 16yr old son. She has home oxygen which she uses prn. She uses no assistive device. She drives. She has a nebulizer. Smoking Status: Former smoker Past Alcohol Use History: None Reported Additional Past Alcohol Use History / Comment(s): started smoking in 1987 and is down to 1/2 ppd. Past Drug Use History: None Reported - Past Family History Father Family Medical History: Cancer Mother Family Medical History: Cancer Medications and Allergies Home Medications Medication Instructions Recorded Confirmed Type Albuterol Sulfate [Proair Hfa] 2 puff INHALATION RT-Q4H PRN 09/04/14 05/29/18 History ALPRAZolam [Xanax] 0.25 mg PO Q8H PRN 10/25/14 05/29/18 History Fluticasone/Salmeterol [Advair 1 puff INHALATION RT-BID 10/20/16 05/29/18 History 250-50 Diskus] predniSONE 50 mg PO DAILY PRN 05/29/18 05/29/18 History Allergies Allergy/AdvReac Type Severity Reaction Status Date / Time codeine AdvReac Mild Nausea & Verified 05/29/18 18:21 Vomiting Physical Examination - Vital Signs Vital Signs: Vital Signs Temp Pulse Pulse Resp BP Pulse Ox 05/30/18 19:02 77 16 05/30/18 18:52 77 16 05/30/18 15:45 98.1 F 74 16 100/67 90 L 05/30/18 12:15 66 05/30/18 12:05 66 05/30/18 11:17 98.1 F 81 20 92/49 95 05/30/18 08:09 98.4 F 86 20 94/51 90 L 05/30/18 07:53 84 05/30/18 07:42 80 05/30/18 00:00 20 05/29/18 23:32 97.0 F L 67 20 107/63 96 05/29/18 21:37 12 05/29/18 20:40 98.5 F 65 24 113/79 93 L Intake and Output 05/30/18 05/30/1805/30/18 06:59 14:59 22:59 Intake Total 580 200 Balance 580 200 Intake: Oral 580 200 Other: # Voids 3 - Constitutional General appearance: obese - EENT EENT: PERRL, hearing intact, vision intact - Respiratory Respiratory: lungs clear - Cardiovascular Cardiovascular: regular rate, normal S1, normal S2 - Integumentary Integumentary: normal - Neurologic Mental status: She was awake alert and oriented 3. There was no a aphasia or dysarthria. Cranial nerve examination: PERRL, EOMI, VFF, face symmetric, tongue midline Speech examination: intact Sensorimotor examination: intact Detailed motor examination: grossly full strength in all extremities Results - Laboratory Findings CBC and BMP: 05/30/18 06:55 05/30/18 06:55 Abnormal Lab Findings: Abnormal Labs 05/29/18 05/29/18 05/29/18 11:27 11:27 22:22 WBC 11.3 H Hgb 16.9 H Hct 49.0 H Neutrophils # 8.5 H Chloride 108 H Glucose 118 H Calcium Triglycerides LDL Cholesterol, Calc HDL Cholesterol Ur Leukocyte Esterase Large H Urine WBC 34 H Urine Bacteria Moderate H Urine Mucus Rare H 05/30/18 06:55 WBC Hgb Hct Neutrophils # Chloride 111 H Glucose 101 H Calcium 8.3 L Triglycerides 242 H LDL Cholesterol, Calc 118 H HDL Cholesterol 29 L Ur Leukocyte Esterase Urine WBC Urine Bacteria Urine Mucus Assessment and Plan (1) Vertigo Current Visit: Yes Status: Acute SNOMED Code(s): 375039835 Plan: The patient is a 48-year-old woman who presents the hospital with acute vertigo which lasted for 2 days and which has resolved significantly. [place] dizziness was positional with associated nausea. The patient likely has underlying peripheral vestibular disorder. He has had a stroke workup including MRI of the brain. There was a nonspecific white matter lesion adjacent to the lateral ventricle which was nonspecific but could be due to a lacunar infarct. Recommend baby aspirin daily area she has had a carotid ultrasound and echocardiogram. She was advised to stop smoking. She was advised to follow up with ENT regarding her peripheral vestibular disturbance
[2018-05-30] MEDS ORDERED: MELATONIN 3 MG TABLET PO SCH (21:00)
--- NOTE | 2018-05-30 22:52 | PN ---
PROGRESS NOTE DATE OF SERVICE: 05/30/2018 This 48-year-old woman who was admitted with vertigo is being evaluated for the possibility of TIA. The MRI did not show any acute abnormality. The possibility of peripheral vestibular disorder is being considered at this time. No chest pain. No palpitations. No fever. PHYSICAL EXAMINATION: Alert and oriented x3. The pulse is 64, blood pressure 98/70, respiration 12, temperature 97.7, pulse ox 88% on room air. HEENT: Conjunctivae normal. Oral mucosa moist. NECK: No jugular venous distention. No carotid bruit. No lymph node enlargement. CARDIOVASCULAR SYSTEM: S1, S2 muffled. RESPIRATORY SYSTEM: Breath sounds diminished at the bases. No rhonchi. No crackles. ABDOMEN: Soft, nontender. No mass palpable. LEGS: No edema. No swelling. NERVOUS SYSTEM: No focal deficit. LABS: Labs at this time show CBC within normal limits, sodium 140 and triglycerides 242. UA: possible UTI. ASSESSMENT: 1. 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 2. Transient ischemic attack unlikely. 3. Urinary tract infection. 4. Increased white count. 5. History of nicotine dependence. 6. Asthma, chronic obstructive pulmonary disease. 7. Chronic hypoxic respiratory failure, on home oxygen nasal cannula. 8. Hyperlipidemia. 9. Degenerative joint disease. 10.History of pneumonia. 11.History of renal disease. 12.History of cholecystectomy. 13.History of anxiety, bipolar. 14.Obesity with body mass index 41. RECOMMENDATIONS AND DISCUSSION: I recommend to continue current medication, continue symptomatic treatment. Closely follow with Neurology. Course of empiric antibiotics. Continue to monitor. Guarded prognosis. Further recommendations to follow. MMODL / IJN: [id number] /
[2018-05-30] MEDS: cefTRIAXone IN SWFI 1,000 MG/10 ML SYRINGE IVP SCH (23:19)
[2018-05-30] MEDS: MECLIZINE 12.5 MG TAB PO SCH (23:19)
[2018-05-31] MEDS: ACETAMINOPHEN TAB 500 MG TAB PO PRN (06:35)
[2018-05-31] MEDS: PANTOPRAZOLE 40 MG TABLET PO SCH (06:35)
[2018-05-31] MEDS: METOCLOPRAMIDE 5 MG/ML 2 ML VIAL IVP SCH ×2 (06:35→13:12)
[2018-05-31] MEDS: SODIUM CHLORIDE 0.9% 1,000 ML IV SCH (06:36)
[2018-05-31 07:20] LABS: Basophils # (A) 0.1 k/uL (0-0.2); Basophils % (A) 1 %; Eosinophils # (A) 0.4 k/uL (0-0.7); Eosinophils % (A) 4 %; HCT 40.7 % (34.0-46.0); HGB 14.1 gm/dL (11.4-16.0); Lymphocytes # (A) 2.6 k/uL (1.0-4.8); Lymphocytes % (A) 30 %; MCH 32.4 pg (25.0-35.0); MCHC 34.8 g/dL (31.0-37.0); MCV 93.1 fL (80.0-100.0); Mean Platelet Volume 7.2; Monocytes # (A) 0.5 k/uL (0-1.0); Monocytes % (A) 5 %; Neutrophils # (A) 4.9 k/uL (1.3-7.7); Neutrophils % (A) 58 %; Platelet Count 193 k/uL (150-450); RBC 4.37 m/uL (3.80-5.40); WBC 8.5 k/uL (3.8-10.6)
[2018-05-31 07:40] LABS: Anion Gap 6 mmol/L; Blood Urea Nitrogen 11 mg/dL (7-17); Calcium 8.7 mg/dL (8.4-10.2); Carbon Dioxide 25 mmol/L (22-30); Chloride 109 mmol/L (98-107); Glucose 98 mg/dL (74-99); Potassium 3.8 mmol/L (3.5-5.1); Sodium 140 mmol/L (137-145)
[2018-05-31] MEDS: SYMBICORT 160-4.5 MCG INHALER INHALATION SCH (08:42)
[2018-05-31 09:33] VITALS: RESP 20; TEMP 98
[2018-05-31] MEDS: HEPARIN SODIUM,PORCINE 5,000 UNIT/ML 1 ML VIAL SQ SCH (09:51)
[2018-05-31] MEDS: cefTRIAXone IN SWFI 1,000 MG/10 ML SYRINGE IVP SCH (09:51)
[2018-05-31] MEDS: MECLIZINE 12.5 MG TAB PO SCH (09:51)
[2018-05-31] MEDS: NICOTINE 14MG/24HR PATCH TRANSDERM SCH (09:51)
[2018-05-31] MEDS: IPRATROPIUM-ALBUTEROL 3 ML NEB INHALATION SCH ×2 (09:52→11:41)
[2018-05-31 13:46] VITALS: BP 100/68; PULSE 57
--- NOTE | 2018-05-31 17:41 | DS ---
DISCHARGE SUMMARY DATE OF SERVICE: 05/31/2018. FINAL DIAGNOSES: 1. 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 2. Transient ischemic attack unlikely. 3. Urinary tract infection. 4. Increased WBC. 5. History of nicotine dependence. 6. History of asthma. 7. History of chronic obstructive pulmonary disease. 8. History of chronic hypoxic respiratory failure on home O2 nasal cannula. 9. Hyperlipidemia. 10.History of degenerative joint disease. 11.History of pneumonia. 12.History of renal disease. 13.History of cholecystectomy. 14.History of anxiety, bipolar, obesity with body mass index of 41. DISCHARGE CONDITION: The patient is being discharged in stable condition with guarded prognosis. HISTORY OF PRESENT ILLNESS: This 48-year-old woman with a past medical history of multiple medical problems, was admitted with vertigo and nausea. The patient treated symptomatically. MRA did not show any evidence of acute abnormality. Dr. Lois Masters saw the patient and recommended outpatient followup. PHYSICAL EXAM: On exam, vitals are stable. Cardiovascular, S1 and S2 normal. Abdomen soft. Nervous system, no focal deficits. DISCHARGE INSTRUCTIONS: 1. Diet is cardiac. 2. Activity as tolerated. FOLLOWUP: Follow up with Dr. Blanca Enriquez in 2 to 3 days. MEDICATIONS: 1. Albuterol 2 puffs q.i.d. p.r.n. 2. Xanax 0.5 q.i.d. p.r.n. 3. Advair 1 puff b.i.d. 4. Prednisone as before. 5. Ceftin 500 mg p.o. b.i.d. for 5 days for urinary tract infection. 6. Antivert 12.5 mg t.i.d. for 3 days and then p.r.n. 7. Habitrol 14 daily when not smoking. FOLLOWUP: 1. Follow up with Dr. Saurav Masters as advised. 2. Follow up with ENT as recommended. MMODL / IJN: [id number] /
== END 2018-05-31 13:57 | disposition home or self-care (01) ==
LOC: EC 10:25 → 6PED 14:54
PROVIDERS: ADMIT Internal Medicine; ATTEND Internal Medicine
DX: R42 Dizziness and giddiness (principal); R11.2 Nausea with vomiting, unspecified; H53.2 Diplopia; R19.7 Diarrhea, unspecified; N39.0 Urinary tract infection, site not specified; J96.11 Chronic respiratory failure with hypoxia; F31.9 Bipolar disorder, unspecified; F41.9 Anxiety disorder, unspecified; J44.9 Chronic obstructive pulmonary disease, unspecified; E78.5 Hyperlipidemia, unspecified; Z99.81 Dependence on supplemental oxygen; E66.9 Obesity, unspecified; Z68.41 Body mass index [BMI] 40.0-44.9, adult; M19.90 Unspecified osteoarthritis, unspecified site; F17.210 Nicotine dependence, cigarettes, uncomplicated; Z79.51 Long term (current) use of inhaled steroids; Z79.52 Long term (current) use of systemic steroids; Z79.899 Other long term (current) drug therapy; Z88.5 Allergy status to narcotic agent; Z90.49 Acquired absence of other specified parts of digestive tract; Z87.442 Personal history of urinary calculi; Z87.01 Personal history of pneumonia (recurrent); Z80.0 Family history of malignant neoplasm of digestive organs
CPT/HCPCS: 99285 ×2; 96374 ×2; 96375 ×3; 96361 ×5; 96372 ×2; 96376 ×3; 36415; 94640 ×3; 93306; 97166; 80061; 80053; 80048 ×2; 82150; 83690; 85025 ×3; 81001; 80306; 71045; 93880; 70450; 70553; G0378 ×3; S4990 ×2; J1644 ×2; J2765 ×3; J0696 ×2; A9581; Q9950

== ENCOUNTER → 2018-09-26 | Outpatient (CLI) | payer OTHER ==
--- NOTE | 2018-09-27 10:02 | ECHOF ---
Referral Reason:R07.9 Unspecified Chest Pain MEASUREMENTS -------- HEIGHT: 165.1 cm WEIGHT: 113.4 kg BP: RVIDd: 3.2 cm (< 3.3) IVSd: 1.1 cm (0.6 - 1.1) LVIDd: 3.9 cm (3.9 - 5.3) LVPWd: 1.1 cm (0.6 - 1.1) IVSs: 1.4 cm LVIDs: 2.9 cm LVPWs: 1.4 cm LAESV Index (A-L): 20.12 ml/m Ao Diam: 2.7 cm (2.0 - 3.7) AV Cusp: 1.9 cm (1.5 - 2.6) LA Diam: 3.2 cm (2.7 - 3.8) MV EXCURSION: 15.618 mm (> 18.000) MV EF SLOPE: 51 mm/s (70 - 150) EPSS: 0.4 cm MV E Lazarus: 0.78 m/s MV DecT: 252 ms MV A Lazarus: 0.76 m/s MV E/A Ratio: 1.03 RAP: 5.00 mmHg RVSP: 9.06 mmHg FINDINGS -------- Sinus rhythm. This was a technically adequate study. The left ventricular size is normal. There is borderline concentric left ventricular hypertrophy. Overall left ventricular systolic function is low-normal with, an EF between 50 - 55 %. The right ventricle is normal in size and function. Normal LA size by volume 22+/-6 ml/m2. RA appears enlarged. There is mild aortic valve sclerosis. There is no evidence of aortic regurgitation. There is no e vidence of aortic stenosis. The mitral valve leaflets are mildly thickened. There is trace to mild mitral regurgitation. Trace tricuspid regurgitation present. Right ventricular systolic pressure is normal at < 35 mmHg. There is no evidence of pulmonary hypertension. The pulmonic valve was not well visualized. The aortic root size is normal. Normal inferior vena cava with normal inspiratory collapse consistent with estimated right atrial pre ssure of 5 mmHg. There is no pericardial effusion. CONCLUSIONS -------- 1. Sinus rhythm. 2. This was a technically adequate study. 3. The left ventricular size is normal. 4. There is borderline concentric left ventricular hypertrophy. 5. Overall left ventricular systolic function is low-normal with, an EF between 50 - 55 %. 6. Normal LA size by volume 22+/-6 ml/m2. 7. RA appears enlarged. 8. There is mild aortic valve sclerosis. 9. The mitral valve leaflets are mildly thickened. 10. There is trace to mild mitral regurgitation. 11. Trace tricuspid regurgitation present. 12. Right ventricular systolic pressure is normal at < 35 mmHg. 13. There is no evidence of pulmonary hypertension. 14. The pulmonic valve was not well visualized. 15. The aortic root size is normal. 16. There is no pericardial effusion. BACK WINDER: Dre Arroyo RDCS
== END ==
LOC: RADECHMAIN 15:03
PROVIDERS: ATTEND Family Medicine
DX: I34.0 Nonrheumatic mitral (valve) insufficiency (principal); I51.7 Cardiomegaly
CPT/HCPCS: 93306

== ENCOUNTER 2018-09-30 19:44 | Inpatient (IN) | payer OTHER ==
[2018-09-30 20:25] LABS: Basophils # (A) 0.1 k/uL (0-0.2); Basophils % (A) 1 %; Eosinophils # (A) 0.4 k/uL (0-0.7); Eosinophils % (A) 3 %; HCT 47.6 % (34.0-46.0); HGB 16.8 gm/dL (11.4-16.0); Lymphocytes # (A) 2.4 k/uL (1.0-4.8); Lymphocytes % (A) 15 %; MCH 32.8 pg (25.0-35.0); MCHC 35.3 g/dL (31.0-37.0); MCV 92.8 fL (80.0-100.0); Monocytes # (A) 0.6 k/uL (0-1.0); Monocytes % (A) 4 %; Neutrophils # (A) 12.3 k/uL (1.3-7.7); Neutrophils % (A) 78 %; Platelet Count 270 k/uL (150-450); RBC 5.13 m/uL (3.80-5.40); WBC 15.9 k/uL (3.8-10.6)
[2018-09-30 20:34] LABS: Albumin 4.3 g/dL (3.5-5.0); Calcium 9.9 mg/dL (8.4-10.2); Potassium 4.2 mmol/L (3.5-5.1); Total Bilirubin 0.5 mg/dL (0.2-1.3); Total Protein 7.3 g/dL (6.3-8.2)
[2018-09-30] MEDS ORDERED: MORPHINE SULFATE 4 MG/ML SYRINGE IV STA (21:10)
[2018-09-30] MEDS ORDERED: ONDANSETRON 4 MG/2 ML VIAL IVP STA (21:10)
[2018-09-30] MEDS ORDERED: SODIUM CHLORIDE 0.9% 1,000 ML IV STA ×2 (21:10→23:50)
--- NOTE | 2018-09-30 21:12 | ED ---
General Adult HPI - General Chief complaint: Abdominal Pain Stated complaint: Right side pain Time Seen by Provider: 09/30/18 21:01 Source: patient, RN notes reviewed Mode of arrival: ambulatory Limitations: no limitations - History of Present Illness Initial comments: Patient 48-year-old female presented to the emergency room today with a chief complaint of right-sided abdominal pain that started proxy 4 hours ago. She describes sharp pain in the right flank area. States she had similar symptoms in the past was her gallbladder. States it was 2 years ago. Patient denies any other complaints at this time. Patient denies any recent fever, chills, shortness of breath, chest pain, numbness or tingling, dysuria or hematuria, constipation or diarrhea, headaches or visual changes, or any other complaints. - Related Data Home Medications Medication Instructions Recorded Confirmed ALPRAZolam [Xanax] 0.25 mg PO DIRECTED PRN 10/25/14 09/30/18 Albuterol Inhaler [Ventolin Hfa 2 puff INHALATION RT-Q4H PRN 09/30/18 09/30/18 Inhaler] Aspirin EC [Ecotrin Low Dose] 81 mg PO DAILY 09/30/18 09/30/18 Loratadine [Claritin] 10 mg PO DAILY 09/30/18 09/30/18 Meclizine [Antivert] 12.5 mg PO BID 09/30/18 09/30/18 Allergies Allergy/AdvReac Type Severity Reaction Status Date / Time codeine AdvReac Mild Nausea & Verified 09/30/18 21:31 Vomiting Review of Systems ROS Statement: Those systems with pertinent positive or pertinent negative responses have been documented in the HPI. ROS Other: All systems not noted in ROS Statement are negative. Past Medical History Past Medical History: Asthma, COPD, Hyperlipidemia, Musculoskeletal Disorder, Pneumonia, Renal Disease, Respiratory Disorder Additional Past Medical History / Comment(s): Home O2 at 2L/[place] prn, RIGHT RENAL CALCULI & gallstone, ANEURYSM RT LUNG in the past but patient thinks it may have resolved, DDD, PAIN LT LOWER BACK, herniated discs. History of Any Multi-Drug Resistant Organisms: None Reported Past Surgical History: Section, Cholecystectomy, Orthopedic Surgery, Tubal Ligation, Uterine Ablation Additional Past Surgical History / Comment(s): X2, ANI CARPAL TUNNEL, PAST HX OF RT NEPHROSTOMY TUBE, lithotripsy, PAST PAIN INJ.'S Past Anesthesia/Blood Transfusion Reactions: Motion Sickness, Postoperative Nausea & Vomiting (PONV) Past Psychological History: Anxiety, Bipolar Smoking Status: Current some day smoker Past Alcohol Use History: None Reported Past Drug Use History: None Reported - Past Family History Father Family Medical History: Cancer Mother Family Medical History: Cancer General Exam - General Exam Comments Initial Comments: General: The patient is awake and alert, in mild distress. Eye: Pupils are equal, round and reactive to light. Extra-ocular movements are intact. No nystagmus. There is normal conjunctiva bilaterally. No signs of icterus. Ears, nose, mouth and throat: There are moist mucous membranes and no oral lesions. Neck: The neck is supple, there is no tenderness or JVD. Cardiovascular: There is a regular rate and rhythm. No murmur, rub or gallop is appreciated. Respiratory: Lungs are clear to auscultation, respirations are non-labored, breath sounds are equal. No wheezes, stridor, rales, or rhonchi. Gastrointestinal: Soft, non-distended, non-tender abdomen without masses or organomegaly noted. There is no rebound or guarding present. No CVA tenderness. Musculoskeletal: Normal ROM, no tenderness. Sensation intact. Strength 5/5. Pulses equal bilaterally 2+. Neurological: A&O x 3. CN II-XII intact, There are no obvious motor or sensory deficits. Coordination appears grossly intact. Speech is normal. Skin: Skin is warm and dry and no rashes or lesions are noted. Psychiatric: Cooperative, appropriate mood & affect, normal judgment. Limitations: no limitations Course Vital Signs 09/30/18 19:55 Temperature 97.7 F Pulse Rate 86 Respiratory 18 Rate Blood Pressure 161/95 O2 Sat by Pulse 91 L Oximetry Medical Decision Making - Medical Decision Making Patient's labs been reviewed does show a 16,000 white count. Patient's urinalysis shows positive nitrate and consistent with UTI. CT the abdomen pelvis performed that showed a 7 mm stone in the right UPJ. Case discussed with attending physician Dr. Lizarraga discussed with urology Dr. Watson on-call. She will be admitted to medicine with consults urology. Started on antibiotics 2 g Rocephin here in the emergency room. Patient resting comfortably at this time. No fever. Patient aware the plan - Lab Data Result diagrams: 09/30/18 20:07 09/30/18 20:07 Lab Results 09/30/18 09/30/18 09/30/18 Range/Units 20:07 20:07 22:01 WBC 15.9 H (3.8-10.6) k/uL RBC 5.13 (3.80-5.40) m/uL Hgb 16.8 H (11.4-16.0) gm/dL Hct 47.6 H (34.0-46.0) % MCV 92.8 (80.0-100.0) fL MCH 32.8 (25.0-35.0) pg MCHC 35.3 (31.0-37.0) g/dL RDW 13.0 (11.5-15.5) % Plt Count 270 (150-450) k/uL Neutrophils % 78 % Lymphocytes % 15 % Monocytes % 4 % Eosinophils % 3 % Basophils % 1 % Neutrophils # 12.3 H (1.3-7.7) k/uL Lymphocytes # 2.4 (1.0-4.8) k/uL Monocytes # 0.6 (0-1.0) k/uL Eosinophils # 0.4 (0-0.7) k/uL Basophils # 0.1 (0-0.2) k/uL Sodium 139 (137-145) mmol/L Potassium 4.2 (3.5-5.1) mmol/L Chloride 104 (98-107) mmol/L Carbon Dioxide 28 (22-30) mmol/L Anion Gap 7 mmol/L BUN 15 (7-17) mg/dL Creatinine 0.92 (0.52-1.04) mg/dL Est GFR (CKD-EPI)AfAm 86 (>60 ml/min/1.73 sqM) Est GFR (CKD-EPI)NonAf 75 (>60 ml/min/1.73 sqM) Glucose 124 H (74-99) mg/dL Calcium 9.9 (8.4-10.2) mg/dL Total Bilirubin 0.5 (0.2-1.3) mg/dL AST 19 (14-36) U/L ALT 33 (9-52) U/L Alkaline Phosphatase 82 (38-126) U/L Total Protein 7.3 (6.3-8.2) g/dL Albumin 4.3 (3.5-5.0) g/dL Amylase 52 (30-110) U/L Lipase 182 (23-300) U/L Urine Color Yellow Urine Appearance Cloudy H (Clear) Urine pH 5.5 (5.0-8.0) Ur Specific [place] 1.012 (1.001-1.035) Urine Protein 1+ H (Negative) Urine Glucose (UA) Negative (Negative) Urine Ketones Negative (Negative) Urine Blood Moderate H (Negative) Urine Nitrite Positive H (Negative) Urine Bilirubin Negative (Negative) Urine Urobilinogen <2.0 (<2.0) mg/dL Ur Leukocyte Esterase Large H (Negative) Urine RBC 156 H (0-5) /hpf Urine WBC >182 H (0-5) /hpf Urine WBC Clumps Occasional H (None) /hpf Ur Squamous Epith Cells 3 (0-4) /hpf Urine Bacteria Few H (None) /hpf Urine Mucus Occasional H (None) /hpf Disposition Clinical Impression: Urinary tract obstruction by kidney stone, UTI (urinary tract infection), Leukocytosis Disposition: ADMITTED IP TO THIS [facility] Condition: Stable Is patient prescribed a controlled substance at d/c from ED?: No Referrals: Blanca Enriquez MD [Primary Care Provider] - 1-2 days Time of Disposition: 23:26
--- NOTE | 2018-09-30 21:13 | XR ---
EXAMINATION TYPE: XR KUB DATE OF EXAM: 09/30/2018 COMPARISON: 10/20/2016 HISTORY: Abdominal pain TECHNIQUE: 3 views upright FINDINGS: There are clips from cholecystectomy. There is no sign of intestinal obstruction or pneumop eritoneum. Fecal pattern is normal. There are no pathologic calcifications over the kidneys. Lung bas es are clear. There is no evidence of a mass. IMPRESSION: Nonacute abdomen. No adverse change compared to old exam.
[2018-09-30 22:22] LABS: Appearance,Urine Cloudy (Clear); Bacteria,Urine Few /hpf; Bilirubin,Urine Negative (Negative); Blood,Urine Moderate (Negative); Color,Urine Yellow; Glucose,Urine (UA) Negative (Negative); Ketones,Urine Negative (Negative); Leukocyte Esterase,Urine Large (Negative); Mucus,Urine Occasional /hpf; Nitrite,Urine Positive (Negative); PH, Urine 5.5 (5.0-8.0); Protein,Urine 1+ (Negative); RBC,Urine 156 /hpf (0-5); Specific Gravity,Urine 1.012 (1.001-1.035); Squamous Epithelial Cell,Urine 3 /hpf (0-4); Urobilinogen,Urine <2.0 mg/dL (<2.0); WBC,Urine >182 /hpf (0-5)
[2018-09-30] MEDS ORDERED: HYDROmorphone 1 MG/ML 1 ML SYRINGE IVP STA (22:25)
--- NOTE | 2018-09-30 22:59 | CT ---
EXAMINATION TYPE: CT abdomen pelvis wo con DATE OF EXAM: 09/30/2018 COMPARISON: 07/09/2017 HISTORY: abdominal pain CT DLP: 981.3 mGycm Automated exposure control for dose reduction was used. TECHNIQUE: Helical acquisition of images was performed from the lung bases through the pelvis. FINDINGS: Lung bases are clear. There is no pleural effusion. Heart size is normal. Liver spleen pancreas appea r normal. There are clips from cholecystectomy. Bile ducts are not dilated. There is no adrenal mass. There are multiple bilateral renal cortical cysts that measure up to 7 cm. There is right-sided hydr onephrosis. There is 7 mm calculus at the right ureteropelvic junction. Left kidney shows no hydronep hrosis. There are multiple bilateral renal calculi. There is no retroperitoneal adenopathy. There is no ascites. There is no mesenteric edema or adenopathy. Bladder distends smoothly. There is no inguin al hernia. Uterus is anteverted. There is no evidence of a bowel obstruction. Appendix appears normal . Lumbar spine is intact. Bony pelvis is intact. IMPRESSION: OBSTRUCTING CALCULUS AT THE RIGHT URETEROPELVIC JUNCTION. MULTIPLE RENAL CALCULI. MULTIPLE RENAL CYST S. OBSTRUCTION IS NEW COMPARED TO OLD EXAM.
[2018-09-30] MEDS ORDERED: cefTRIAXone 2,000 MG in SODIUM CHLORIDE 0.9% 100 ML IVPB ONE (23:00)
[2018-09-30] MEDS ORDERED: NALOXONE 0.4 MG/ML 1 ML VIAL IV PRN (23:26)
[2018-09-30] MEDS ORDERED: SODIUM CHLORIDE 0.9% 1,000 ML IV ONE (23:26)
[2018-09-30] MEDS ORDERED: ONDANSETRON 4 MG/2 ML VIAL IVP PRN (23:26)
[2018-10-01 01:18] VITALS: BMI 41.3
[2018-10-01] MEDS: HYDROmorphone 1 MG/ML 1 ML SYRINGE IVP PRN ×2 (01:52→06:20)
[2018-10-01] MEDS: ACETAMINOPHEN TAB 325 MG TAB PO PRN ×3 (06:38→22:12)
[2018-10-01 09:36] LABS: Albumin 3.6 g/dL (3.5-5.0); Potassium 4.5 mmol/L (3.5-5.1); Total Bilirubin 0.9 mg/dL (0.2-1.3); Total Protein 6.3 g/dL (6.3-8.2)
--- NOTE | 2018-10-01 10:05 | P.GSCN ---
History of Present Illness Consult date: 10/01/18 History of present illness: This is a 48-year-old female with a history kidney stones who 24 hours ago developed right flank pain. She presented to the emergency room or a 7 mm right proximal ureteral stone was identified. She had an elevated white count at 15 8 and infected looking urine thus was admitted to the hospital for antibiotics. She low-grade temperature last night but is afebrile today. Her pain is under control. Her previous percutaneous nephrostomy and removal of stone several years ago. He is not had any stones in the between. Other than oxygen she has no other medications. She has COPD/asthma. Review of Systems - Constitutional Reports chronic pain Past Medical History Past Medical History: Asthma, COPD, Hyperlipidemia, Musculoskeletal Disorder, Pneumonia, Renal Disease, Respiratory Disorder Additional Past Medical History / Comment(s): Home O2 at 2L-3L/NC prn, RIGHT RENAL CALCULI & gallstone, ANEURYSM RT LUNG in the past but patient thinks it may have resolved, DDD, PAIN LT LOWER BACK, herniated discs.vertigo. History of Any Multi-Drug Resistant Organisms: None Reported Past Surgical History: Section, Cholecystectomy, Orthopedic Surgery, Tubal Ligation, Uterine Ablation Additional Past Surgical History / Comment(s): X2, ANI CARPAL TUNNEL, PAST HX OF RT NEPHROSTOMY TUBE, lithotripsy, PAST PAIN INJ.'S, hernia sx Past Anesthesia/Blood Transfusion Reactions: Motion Sickness, Postoperative Nausea & Vomiting (PONV) Past Psychological History: Anxiety, Bipolar, Depression Additional Psychological History / Comment(s): Pt resides with 2 sons. has a autistic 16yr old son. in june 2018. She has home oxygen which she uses prn. She uses no assistive device. She drives. She has a nebulizer. Smoking Status: Current every day smoker Past Alcohol Use History: None Reported Additional Past Alcohol Use History / Comment(s): started smoking in 1987 and is down to 1/2 ppd. Past Drug Use History: None Reported - Past Family History Father Family Medical History: Cancer Mother Family Medical History: Cancer Medications and Allergies Home Medications Medication Instructions Recorded Confirmed Type ALPRAZolam [Xanax] 0.25 mg PO QID 10/25/14 10/01/18 History Albuterol Inhaler [Ventolin Hfa 2 puff INHALATION RT-Q4H PRN 09/30/18 09/30/18 History Inhaler] Aspirin EC [Ecotrin Low Dose] 81 mg PO DAILY 09/30/18 09/30/18 History Loratadine [Claritin] 10 mg PO DAILY 09/30/18 09/30/18 History Meclizine [Antivert] 12.5 mg PO BID 09/30/18 09/30/18 History Cyclobenzaprine [Flexeril] 10 mg PO TID 10/01/18 10/01/18 History Ergocalciferol [Vitamin D2 1 cap PO WEEKLY 10/01/18 10/01/18 History (DRISDOL)] Ibuprofen [Motrin] 800 mg PO TID 10/01/18 10/01/18 History Allergies Allergy/AdvReac Type Severity Reaction Status Date / Time codeine AdvReac Mild Nausea & Verified 09/30/18 21:31 Vomiting Surgical - Exam Vital Signs Temp Pulse Resp BP Pulse Ox 97.7 F 86 18 161/95 91 L 09/30/18 19:55 09/30/18 19:55 09/30/18 19:55 09/30/18 19:55 09/30/18 19:55 - General well developed, well nourished, obese - Eyes PERRL - ENT no hearing loss - Neck trachea midline - Respiratory Nasal O2 normal expansion, normal respiratory effort - Cardiovascular Rhythm: regular - Abdomen Abdomen: soft, non tender - Integumentary no rash, no growths - Neurologic normal coordination, normal sensation - Musculoskeletal normal posture - Psychiatric oriented to time, oriented to person, oriented to place, speech is normal, memory intact Results - Labs 09/30/18 20:07 10/01/18 08:59 Abnormal Lab Results - Last 24 Hours (Table) 09/30/18 09/30/18 09/30/18 Range/Units 20:07 20:07 22:01 WBC 15.9 H (3.8-10.6) k/uL Hgb 16.8 H (11.4-16.0) gm/dL Hct 47.6 H (34.0-46.0) % Neutrophils # 12.3 H (1.3-7.7) k/uL Chloride (98-107) mmol/L Glucose 124 H (74-99) mg/dL Urine Appearance Cloudy H (Clear) Urine Protein 1+ H (Negative) Urine Blood Moderate H (Negative) Urine Nitrite Positive H (Negative) Ur Leukocyte Esterase Large H (Negative) Urine RBC 156 H (0-5) /hpf Urine WBC >182 H (0-5) /hpf Urine WBC Clumps Occasional H (None) /hpf Urine Bacteria Few H (None) /hpf Urine Mucus Occasional H (None) /hpf 10/01/18 Range/Units 08:59 WBC (3.8-10.6) k/uL Hgb (11.4-16.0) gm/dL Hct (34.0-46.0) % Neutrophils # (1.3-7.7) k/uL Chloride 109 H (98-107) mmol/L Glucose 108 H (74-99) mg/dL Urine Appearance (Clear) Urine Protein (Negative) Urine Blood (Negative) Urine Nitrite (Negative) Ur Leukocyte Esterase (Negative) Urine RBC (0-5) /hpf Urine WBC (0-5) /hpf Urine WBC Clumps (None) /hpf Urine Bacteria (None) /hpf Urine Mucus (None) /hpf Diabetes panel 09/30/18 10/01/18 Range/Units 20:07 08:59 Sodium 139 142 (137-145) mmol/L Potassium 4.2 4.5 (3.5-5.1) mmol/L Chloride 104 109 H (98-107) mmol/L Carbon Dioxide 28 28 (22-30) mmol/L BUN 15 13 (7-17) mg/dL Creatinine 0.92 1.03 (0.52-1.04) mg/dL Glucose 124 H 108 H (74-99) mg/dL Calcium 9.9 9.0 (8.4-10.2) mg/dL AST 19 20 (14-36) U/L ALT 33 39 (9-52) U/L Alkaline Phosphatase 82 68 (38-126) U/L Total Protein 7.3 6.3 (6.3-8.2) g/dL Albumin 4.3 3.6 (3.5-5.0) g/dL Calcium panel 09/30/18 10/01/18 Range/Units 20:07 08:59 Calcium 9.9 9.0 (8.4-10.2) mg/dL Albumin 4.3 3.6 (3.5-5.0) g/dL Pituitary panel 09/30/18 10/01/18 Range/Units 20:07 08:59 Sodium 139 142 (137-145) mmol/L Potassium 4.2 4.5 (3.5-5.1) mmol/L Chloride 104 109 H (98-107) mmol/L Carbon Dioxide 28 28 (22-30) mmol/L BUN 15 13 (7-17) mg/dL Creatinine 0.92 1.03 (0.52-1.04) mg/dL Glucose 124 H 108 H (74-99) mg/dL Calcium 9.9 9.0 (8.4-10.2) mg/dL Adrenal panel 09/30/18 10/01/18 Range/Units 20:07 08:59 Sodium 139 142 (137-145) mmol/L Potassium 4.2 4.5 (3.5-5.1) mmol/L Chloride 104 109 H (98-107) mmol/L Carbon Dioxide 28 28 (22-30) mmol/L BUN 15 13 (7-17) mg/dL Creatinine 0.92 1.03 (0.52-1.04) mg/dL Glucose 124 H 108 H (74-99) mg/dL Calcium 9.9 9.0 (8.4-10.2) mg/dL Total Bilirubin 0.5 0.9 (0.2-1.3) mg/dL AST 19 20 (14-36) U/L ALT 33 39 (9-52) U/L Alkaline Phosphatase 82 68 (38-126) U/L Total Protein 7.3 6.3 (6.3-8.2) g/dL Albumin 4.3 3.6 (3.5-5.0) g/dL - Imaging CT scan - abdomen: report reviewed, image reviewed CT scan - pelvis: report reviewed, image reviewed Assessment and Plan Assessment: Impression: Right proximal ureteral stone, urinary tract infection Recommendations: The patient is relatively asymptomatic at this point in time however the stone is somewhat large and there was a low-grade infection last night. We'll see how she does today psoas determine whether she'll need a stent or not. She does not we may consider shockwave lithotripsy on Wednesday.
[2018-10-01 10:15] LABS: Basophils # (A) 0.1 k/uL (0-0.2); Basophils % (A) 1 %; Eosinophils # (A) 0.1 k/uL (0-0.7); Eosinophils % (A) 1 %; HCT 46.4 % (34.0-46.0); Lymphocytes # (A) 1.3 k/uL (1.0-4.8); Lymphocytes % (A) 11 %; MCH 31.1 pg (25.0-35.0); MCHC 32.4 g/dL (31.0-37.0); MCV 96.2 fL (80.0-100.0); Mean Platelet Volume 6.5; Monocytes # (A) 0.4 k/uL (0-1.0); Monocytes % (A) 3 %; Neutrophils # (A) 10.2 k/uL (1.3-7.7); Neutrophils % (A) 84 %; Platelet Count 235 k/uL (150-450); RBC 4.82 m/uL (3.80-5.40); RDW 13.1 % (11.5-15.5); WBC 12.1 k/uL (3.8-10.6)
[2018-10-01] MEDS ORDERED: ACETAMINOPHEN TAB 325 MG TAB PO STA (15:16)
--- NOTE | 2018-10-01 16:33 | P.PN ---
Subjective Progress Note Date: 10/01/18 The patient is in the hospital with a ureteral stone and urinary infection. She has had 2 temperature spikes at over 101.5 this afternoon. She'll be set up for cystoscopy and stent placement to relieve the obstruction tomorrow. Objective - Vital Signs Vital signs: Vital Signs Temp 101.7 F H 10/01/18 15:00 Pulse 95 10/01/18 15:00 Resp 16 10/01/18 15:00 BP 83/44 10/01/18 15:00 Pulse Ox 91 L 10/01/18 15:00 Intake & Output 09/30/18 10/01/18 10/01/18 18:59 06:59 18:59 Intake Total 1200 200 Balance 1200 200 Weight 112.5 kg Intake: Amount of Fluid Infused ( 1200 ml) Oral 0 200 Other: Voiding Method Toilet Toilet # Voids 0 4 - Labs CBC & Chem 7: 10/01/18 08:59 10/01/18 08:59 Labs: Abnormal Lab Results - Last 24 Hours (Table) 09/30/18 09/30/18 09/30/18 Range/Units 20:07 20:07 22:01 WBC 15.9 H (3.8-10.6) k/uL Hgb 16.8 H (11.4-16.0) gm/dL Hct 47.6 H (34.0-46.0) % Neutrophils # 12.3 H (1.3-7.7) k/uL Chloride (98-107) mmol/L Glucose 124 H (74-99) mg/dL Urine Appearance Cloudy H (Clear) Urine Protein 1+ H (Negative) Urine Blood Moderate H (Negative) Urine Nitrite Positive H (Negative) Ur Leukocyte Esterase Large H (Negative) Urine RBC 156 H (0-5) /hpf Urine WBC >182 H (0-5) /hpf Urine WBC Clumps Occasional H (None) /hpf Urine Bacteria Few H (None) /hpf Urine Mucus Occasional H (None) /hpf 10/01/18 10/01/18 Range/Units 08:59 08:59 WBC 12.1 H (3.8-10.6) k/uL Hgb (11.4-16.0) gm/dL Hct 46.4 H (34.0-46.0) % Neutrophils # 10.2 H (1.3-7.7) k/uL Chloride 109 H (98-107) mmol/L Glucose 108 H (74-99) mg/dL Urine Appearance (Clear) Urine Protein (Negative) Urine Blood (Negative) Urine Nitrite (Negative) Ur Leukocyte Esterase (Negative) Urine RBC (0-5) /hpf Urine WBC (0-5) /hpf Urine WBC Clumps (None) /hpf Urine Bacteria (None) /hpf Urine Mucus (None) /hpf
[2018-10-01] MEDS: HYDROcodone/APAP 5-325MG 1 EACH TAB PO PRN ×2 (17:33→23:53)
[2018-10-01] MEDS ORDERED: ALPRAZolam 0.25 MG TAB PO PRN (18:37)
[2018-10-02] MEDS: ACETAMINOPHEN TAB 325 MG TAB PO PRN (06:05)
[2018-10-02] MEDS ORDERED: IV FLUID CONTINUATION 1,000 ML IV ONE ×3 (08:33→10:57)
[2018-10-02 09:26] VITALS: RESP 16
--- NOTE | 2018-10-02 11:19 | P.HPIM ---
History of Present Illness H&P Date: 10/01/18 Chief Complaint: Right-sided abdominal pain Patient 48-year-old female presented to the emergency room today with a chief complaint of right-sided abdominal pain that started proxy 4 hours ago. She describes sharp pain in the right flank area. States she had similar symptoms in the past was her gallbladder. States it was 2 years ago. Patient denies any other complaints at this time. Patient denies any recent fever, chills, shortness of breath, chest pain, numbness or tingling, dysuria or hematuria, constipation or diarrhea, headaches or visual changes, or any other complaints. Review of Systems Constitutional: Reports chronic pain, Denies chills, Denies fever Eyes: denies blurred vision, denies loss of vision Ears, nose, mouth and throat: Denies headache, Denies nasal congestion Cardiovascular: Denies chest pain, Denies dyspnea on exertion, Denies palpitations Respiratory: Denies congestion, Denies cough, Denies cough with sputum Gastrointestinal: Reports abdominal pain, Denies diarrhea, Denies nausea, Denies vomiting Genitourinary: Reports dysuria, Reports flank pain, Reports hematuria, Reports kidney stones Musculoskeletal: Denies morning stiffness, Denies muscle cramps, Denies muscle weakness Integumentary: Denies color changes, Denies darkening of skin, Denies rash Neurological: Denies confusion, Denies gait dysfunction, Denies numbness, Denies paralysis Psychiatric: Denies anxiety, Denies change in sleep habits, Denies confusion Endocrine: Denies cold intolerance, Denies heat intolerance, Denies polydipsia, Denies polyuria Hematologic/Lymphatic: Denies easy bruising, Denies lymphadenopathy Allergic/Immunologic: Denies allergic rhinitis, Denies anaphylaxis, Denies angioedema Past Medical History Past Medical History: Asthma, COPD, Hyperlipidemia, Musculoskeletal Disorder, Pneumonia, Renal Disease, Respiratory Disorder Additional Past Medical History / Comment(s): Home O2 at 2L-3L/[place] prn, RIGHT RENAL CALCULI & gallstone, ANEURYSM RT LUNG in the past but patient thinks it may have resolved, DDD, PAIN LT LOWER BACK, herniated discs.vertigo. History of Any Multi-Drug Resistant Organisms: None Reported Past Surgical History: Section, Cholecystectomy, Orthopedic Surgery, Tubal Ligation, Uterine Ablation Additional Past Surgical History / Comment(s): X2, ANI CARPAL TUNNEL, PAST HX OF RT NEPHROSTOMY TUBE, lithotripsy, PAST PAIN INJ.'S, hernia sx Past Anesthesia/Blood Transfusion Reactions: Motion Sickness, Postoperative Nausea & Vomiting (PONV) Past Psychological History: Anxiety, Bipolar, Depression Additional Psychological History / Comment(s): Pt resides with 2 sons. has a autistic 16yr old son. in june 2018. She has home oxygen which she uses prn. She uses no assistive device. She drives. She has a nebulizer. Smoking Status: Current every day smoker Past Alcohol Use History: None Reported Additional Past Alcohol Use History / Comment(s): started smoking in 1987 and is down to 1/2 ppd. Past Drug Use History: None Reported - Past Family History Father Family Medical History: Cancer Mother Family Medical History: Cancer Medications and Allergies Home Medications Medication Instructions Recorded Confirmed Type ALPRAZolam [Xanax] 0.25 mg PO QID 10/25/14 10/01/18 History Albuterol Inhaler [Ventolin Hfa 2 puff INHALATION RT-Q4H PRN 09/30/18 09/30/18 History Inhaler] Aspirin EC [Ecotrin Low Dose] 81 mg PO DAILY 09/30/18 09/30/18 History Loratadine [Claritin] 10 mg PO DAILY 09/30/18 09/30/18 History Meclizine [Antivert] 12.5 mg PO BID 09/30/18 09/30/18 History Cyclobenzaprine [Flexeril] 10 mg PO TID 10/01/18 10/01/18 History Ergocalciferol [Vitamin D2 1 cap PO WEEKLY 10/01/18 10/01/18 History (DRISDOL)] Ibuprofen [Motrin] 800 mg PO TID 10/01/18 10/01/18 History Allergies Allergy/AdvReac Type Severity Reaction Status Date / Time codeine AdvReac Mild Nausea & Verified 09/30/18 21:31 Vomiting Physical Exam Vitals: Vital Signs Temp Pulse Pulse Resp BP BP Pulse Ox 10/01/18 08:50 18 10/01/18 08:26 99.5 F 10/01/18 07:35 88 L 10/01/18 06:36 101.4 F H 111 H 20 104/63 89 L 10/01/18 01:21 99.4 F 93 18 108/69 91 L 10/01/18 00:02 98.4 F 85 18 98/70 09/30/18 19:55 97.7 F 86 18 161/95 91 L Intake and Output 09/30/18 10/01/18 10/01/18 22:59 06:59 14:59 Intake Total 1200 Balance 1200 Intake: Amount of Fluid Infused ( 1200 ml) Oral 0 Other: Voiding Method Toilet Toilet # Voids 0 Weight 108.862 kg 112.5 kg General: The patient is awake and alert, in mild distress. Eye: Pupils are equal, round and reactive to light. Extra-ocular movements are intact. No nystagmus. There is normal conjunctiva bilaterally. No signs of icterus. Ears, nose, mouth and throat: There are moist mucous membranes and no oral lesions. Neck: The neck is supple, there is no tenderness or JVD. Cardiovascular: There is a regular rate and rhythm. No murmur, rub or gallop is appreciated. Respiratory: Lungs are clear to auscultation, respirations are non-labored, breath sounds are equal. No wheezes, stridor, rales, or rhonchi. Gastrointestinal: Soft, non-distended, non-tender abdomen without masses or organomegaly noted. There is no rebound or guarding present. No CVA tenderness. Musculoskeletal: Normal ROM, no tenderness. Sensation intact. Strength 5/5. Pulses equal bilaterally 2+. Neurological: A&O x 3. CN II-XII intact, There are no obvious motor or sensory deficits. Coordination appears grossly intact. Speech is normal. Skin: Skin is warm and dry and no rashes or lesions are noted. Psychiatric: Cooperative, appropriate mood & affect, normal judgment. Limitations: no limitations Results CBC & Chem 7: 10/01/18 08:59 10/01/18 08:59 Labs: Abnormal Lab Results - Last 24 Hours (Table) 09/30/18 09/30/18 09/30/18 Range/Units 20:07 20:07 22:01 WBC 15.9 H (3.8-10.6) k/uL Hgb 16.8 H (11.4-16.0) gm/dL Hct 47.6 H (34.0-46.0) % Neutrophils # 12.3 H (1.3-7.7) k/uL Chloride (98-107) mmol/L Glucose 124 H (74-99) mg/dL Urine Appearance Cloudy H (Clear) Urine Protein 1+ H (Negative) Urine Blood Moderate H (Negative) Urine Nitrite Positive H (Negative) Ur Leukocyte Esterase Large H (Negative) Urine RBC 156 H (0-5) /hpf Urine WBC >182 H (0-5) /hpf Urine WBC Clumps Occasional H (None) /hpf Urine Bacteria Few H (None) /hpf Urine Mucus Occasional H (None) /hpf 10/01/18 10/01/18 Range/Units 08:59 08:59 WBC 12.1 H (3.8-10.6) k/uL Hgb (11.4-16.0) gm/dL Hct 46.4 H (34.0-46.0) % Neutrophils # 10.2 H (1.3-7.7) k/uL Chloride 109 H (98-107) mmol/L Glucose 108 H (74-99) mg/dL Urine Appearance (Clear) Urine Protein (Negative) Urine Blood (Negative) Urine Nitrite (Negative) Ur Leukocyte Esterase (Negative) Urine RBC (0-5) /hpf Urine WBC (0-5) /hpf Urine WBC Clumps (None) /hpf Urine Bacteria (None) /hpf Urine Mucus (None) /hpf Thrombosis Risk Factor Assmnt - Choose All That Apply Any of the Below Risk Factors Present?: Yes Each Factor Represents 1 point: Abnormal pulmonary function (COPD), Age 41-60 years, Obesity (BMI >25) Other Risk Factors: No Other congenital or acquired thrombophilia - If yes, enter type in comment: No Thrombosis Risk Factor Assessment Total Risk Factor Score: 3 Thrombosis Risk Factor Assessment Level: Moderate Risk Assessment and Plan Assessment: 1. Intractable abdominal pain - Possibly secondary to obstructing renal calculi - We will continue with IV fluid hydration in the form of normal saline to run at 100 mL an hour along with pain control with Dilaudid 1 mg IV every 3 hours when necessary and Lynn 500 mg every 4 hours when necessary 2. Right proximal ureteral stone/ obstructive uropathy - Hematology service is on board; neurology is recommending to monitor patient closely since patient is relatively asymptomatic; patient has relatively large stone and did have a low-grade fever see urology is monitoring to determine whether she'll need a stent or not versus shockwave lithotripsy on Wednesday 3. UTI - Continue with IV Rocephin at 1 g every 24 hours - We will make further recommendations on antibiotic treatment once culture results are available 4. Leukocytosis; possibly secondary to UTI - We will continue to monitor CBC closely and plan to change antibiotic therapy if white blood count continues to remain elevated 5. Asthma/COPD; not in exacerbation - We will continue with Ventolin inhaler 2 puffs 4 times a day when necessary 6. Hyperlipidemia; currently not on statin therapy 7. Seasonal ALLERGY - Continue with loratadine 10 mg by mouth daily along with meclizine 12.5 mg twice a day 8. DVT prophylaxis; early ambulation CODE STATUS; full code Time with Patient: Greater than 30
--- NOTE | 2018-10-02 11:54 | P.OP ---
Date of Procedure: 10/02/18 Preoperative Diagnosis: Right ureteral calculus, urinary tract infection with sepsis, pyonephrosis right Postoperative Diagnosis: Same Procedure(s) Performed: Cystoscopy with placement of double-J catheter right, 6 x 24 Anesthesia: MAC Surgeon: Armando Watson Pathology: none sent Condition: stable Disposition: PACU Indications for Procedure: The patient is 48. She is admitted to the hospital with right ureteral colic due to a 7 mm proximal ureteral stone. She had infected looking urine and an elevated white count. She developed a fever yesterday several times consistent with pyelonephrosis. She comes for stent placement on the right ureter to drain the pyonephrosis. Description of Procedure: The patient is brought to the operating suite. She is given IV sedation. She' s placed lithotomy position with a sterile prep and drape. Fluoroscopy of the right side is difficult to see whether she has a stone due to her morbid obesity. I reviewed again the computed tomography scan to make sure the stone was in the right ureter was. Cystoscopy Foroblique lens and 22-Portuguese sheath identifies a normal urethra. There is chronic cystitis and acute cystitis throughout the bladder. 35 wires passed through the right ureter up into the renal pelvis. Over the wires passed a 6 x 24 double-J catheter that coils in the renal pelvis and the bladder. The bladder is drained and the patient's awake and returned recovery room good condition. She tolerated procedure well. She'll be observed in the hospital overnight. When urine cultures are back and she is feeling better she can be discharged home. She will need a right ureteroscopy, laser lithotripsy stone and stent removal in the future.
--- NOTE | 2018-10-02 12:32 | FL ---
FLUOROSCOPY 16 seconds of fluoroscopy time were utilized during a cystogram. 1 images document the procedure.
[2018-10-02] MEDS: CYCLOBENZAPRINE 10 MG TAB PO SCH ×3 (13:58→22:24)
[2018-10-02] MEDS: MECLIZINE 12.5 MG TAB PO SCH ×2 (13:58→22:24)
[2018-10-02] MEDS: LORATADINE 10 MG TAB PO SCH (13:59)
[2018-10-02] MEDS: ALBUTEROL NEBULIZED 2.5 MG/3 ML INHALATION PRN ×2 (15:41→19:37)
[2018-10-02] MEDS: HYDROcodone/APAP 5-325MG 1 EACH TAB PO PRN ×2 (16:05→22:27)
[2018-10-03] MEDS: HYDROcodone/APAP 5-325MG 1 EACH TAB PO PRN (05:54)
[2018-10-03] MEDS: ALBUTEROL NEBULIZED 2.5 MG/3 ML INHALATION PRN ×2 (07:36→10:56)
[2018-10-03 07:38] VITALS: BP 96/49; TEMP 99.2
[2018-10-03 08:28] LABS: Basophils # (A) 0.1 k/uL (0-0.2); Basophils % (A) 1 %; Eosinophils # (A) 0.3 k/uL (0-0.7); Eosinophils % (A) 5 %; HCT 41.4 % (34.0-46.0); HGB 13.8 gm/dL (11.4-16.0); Lymphocytes # (A) 1.5 k/uL (1.0-4.8); Lymphocytes % (A) 23 %; MCH 31.1 pg (25.0-35.0); MCHC 33.3 g/dL (31.0-37.0); MCV 93.5 fL (80.0-100.0); Mean Platelet Volume 6.6; Monocytes # (A) 0.4 k/uL (0-1.0); Monocytes % (A) 6 %; Neutrophils # (A) 4.4 k/uL (1.3-7.7); Neutrophils % (A) 64 %; Platelet Count 194 k/uL (150-450); RBC 4.43 m/uL (3.80-5.40); RDW 13.1 % (11.5-15.5); WBC 6.8 k/uL (3.8-10.6)
[2018-10-03] MEDS: CYCLOBENZAPRINE 10 MG TAB PO SCH (08:28)
[2018-10-03] MEDS: MECLIZINE 12.5 MG TAB PO SCH (08:28)
[2018-10-03] MEDS: LORATADINE 10 MG TAB PO SCH (08:28)
[2018-10-03 08:37] LABS: Anion Gap 5 mmol/L; Blood Urea Nitrogen 10 mg/dL (7-17); Calcium 8.4 mg/dL (8.4-10.2); Carbon Dioxide 26 mmol/L (22-30); Chloride 107 mmol/L (98-107); Glucose 155 mg/dL (74-99); Sodium 138 mmol/L (137-145)
--- NOTE | 2018-10-03 10:33 | P.PN ---
Subjective Progress Note Date: 10/02/18 Principal diagnosis: UTI Renal calculus/obstructive uropathy 48-year-old female with a history kidney stones who 24 hours ago developed right flank pain. She presented to the emergency room or a 7 mm right proximal ureteral stone was identified. She had an elevated white count at 15 8 and infected looking urine thus was admitted to the hospital for antibiotics. She low-grade temperature last night but is afebrile today. Her pain is under control. Her previous percutaneous nephrostomy and removal of stone several years ago. 10/02/2018; Patient seen in follow-up for UTI along with obstructive uropathy with renal calculus; per urology note patient is possibly going to undergo cystoscopy and stent placement to relieve obstruction Patient continues to spike temperatures with a T-max of 101.5 this morning; currently on IV ceftriaxone for UTI; urine culture is currently pending; continue with IV ceftriaxone to final urine culture and sensitivity report is available; we will monitor CBC and electrolytes closely Objective - Vital Signs Vital signs: Vital Signs Temp 98.9 F 10/02/18 10:58 Pulse 93 10/02/18 10:58 Resp 16 10/02/18 10:58 BP 95/46 10/02/18 07:00 Pulse Ox 92 L 10/02/18 10:58 Intake & Output 10/01/18 10/02/18 10/02/18 18:59 06:59 18:59 Intake Total 200 375 Output Total 1800 Balance 200 -1425 Intake: Oral 200 375 Output: Urine 1800 Other: Voiding Method Toilet Toilet Toilet # Voids 4 - Exam General: The patient is awake and alert, in mild distress. Eye: Pupils are equal, round and reactive to light. Extra-ocular movements are intact. No nystagmus. There is normal conjunctiva bilaterally. No signs of icterus. Ears, nose, mouth and throat: There are moist mucous membranes and no oral lesions. Neck: The neck is supple, there is no tenderness or JVD. Cardiovascular: There is a regular rate and rhythm. No murmur, rub or gallop is appreciated. Respiratory: Lungs are clear to auscultation, respirations are non-labored, breath sounds are equal. No wheezes, stridor, rales, or rhonchi. Gastrointestinal: Soft, non-distended, non-tender abdomen without masses or organomegaly noted. There is no rebound or guarding present. No CVA tenderness. Musculoskeletal: Normal ROM, no tenderness. Sensation intact. Strength 5/5. Pulses equal bilaterally 2+. Neurological: A&O x 3. CN II-XII intact, There are no obvious motor or sensory deficits. Coordination appears grossly intact. Speech is normal. Skin: Skin is warm and dry and no rashes or lesions are noted. Psychiatric: Cooperative, appropriate mood & affect, normal judgment. Limitations: no limitations - Labs CBC & Chem 7: 10/03/18 08:07 10/03/18 08:07 Assessment and Plan Assessment: 1. Intractable abdominal pain - Possibly secondary to obstructing renal calculi - We will continue with IV fluid hydration in the form of normal saline to run at 100 mL an hour along with pain control with Dilaudid 1 mg IV every 3 hours when necessary and [place] 500 mg every 4 hours when necessary 2. Right proximal ureteral stone/ obstructive uropathy - Hematology service is on board; neurology is recommending to monitor patient closely since patient is relatively asymptomatic; patient has relatively large stone and did have a low-grade fever see urology is monitoring to determine whether she'll need a stent or not versus shockwave lithotripsy on Wednesday 3. UTI - Continue with IV Rocephin at 1 g every 24 hours - We will make further recommendations on antibiotic treatment once culture results are available 4. Leukocytosis; possibly secondary to UTI - We will continue to monitor CBC closely and plan to change antibiotic therapy if white blood count continues to remain elevated 5. Asthma/COPD; not in exacerbation - We will continue with Ventolin inhaler 2 puffs 4 times a day when necessary 6. Hyperlipidemia; currently not on statin therapy 7. Seasonal ALLERGY - Continue with loratadine 10 mg by mouth daily along with meclizine 12.5 mg twice a day 8. DVT prophylaxis; early ambulation CODE STATUS; full code Time with Patient: Greater than 30
--- NOTE | 2018-10-03 10:49 | P.PN ---
Subjective Progress Note Date: 10/03/18 The patient is feeling well after her right stent placement. Her white count is normal. I'll see her in the office in one week. Objective - Vital Signs Vital signs: Vital Signs Temp 99.2 F 10/03/18 07:00 Pulse 77 10/03/18 07:47 Resp 16 10/03/18 08:00 BP 96/49 10/03/18 07:00 Pulse Ox 90 L 10/03/18 07:00 Intake & Output 10/02/18 10/03/18 10/03/18 18:59 06:59 18:59 Intake Total 600 Output Total 0 2300 450 Balance 600 -2300 -450 Intake: IV 600 Output: Urine 2300 450 Estimated Blood Loss 0 Other: Voiding Method Toilet Toilet Toilet # Voids 3 0 # Bowel Movements 0 - Labs CBC & Chem 7: 10/03/18 08:07 10/03/18 08:07 Labs: Abnormal Lab Results - Last 24 Hours (Table) 10/03/18 Range/Units 08:07 Glucose 155 H (74-99) mg/dL
[2018-10-03 11:06] VITALS: PULSE 79
--- NOTE | 2018-10-03 11:07 | P.DS ---
Providers Date of admission: 09/30/18 23:50 Expected date of discharge: 10/03/18 Attending physician: Jones Carmona Consults: 09/30/18 23:26 Consult Physician Stat Consulting Provider: Armando Watson Consult Reason/Comments: Obstructing kidney stone Do you want consulting provider notified?: Yes [facility] Course: UTI Renal calculus/obstructive uropathy 48-year-old female with a history kidney stones who 24 hours ago developed right flank pain. She presented to the emergency room or a 7 mm right proximal ureteral stone was identified. She had an elevated white count at 15 8 and infected looking urine thus was admitted to the hospital for antibiotics. She low-grade temperature last night but is afebrile today. Her pain is under control. Her previous percutaneous nephrostomy and removal of stone several years ago. 10/02/2018; Patient seen in follow-up for UTI along with obstructive uropathy with renal calculus; per urology note patient is possibly going to undergo cystoscopy and stent placement to relieve obstruction Patient continues to spike temperatures with a T-max of 101.5 this morning; currently on IV ceftriaxone for UTI; urine culture is currently pending; continue with IV ceftriaxone to final urine culture and sensitivity report is available; we will monitor CBC and electrolytes closely Patient an event following treatment plan upon admission to the hospital; 1. Intractable abdominal pain - Possibly secondary to obstructing renal calculi - We will continue with IV fluid hydration in the form of normal saline to run at 100 mL an hour along with pain control with Dilaudid 1 mg IV every 3 hours when necessary and [place] 500 mg every 4 hours when necessary 2. Right proximal ureteral stone/ obstructive uropathy - Hematology service is on board; neurology is recommending to monitor patient closely since patient is relatively asymptomatic; patient has relatively large stone and did have a low-grade fever see urology is monitoring to determine whether she'll need a stent or not versus shockwave lithotripsy on Wednesday 3. UTI - Continue with IV Rocephin at 1 g every 24 hours - We will make further recommendations on antibiotic treatment once culture results are available 4. Leukocytosis; possibly secondary to UTI - We will continue to monitor CBC closely and plan to change antibiotic therapy if white blood count continues to remain elevated 5. Asthma/COPD; not in exacerbation - We will continue with Ventolin inhaler 2 puffs 4 times a day when necessary 6. Hyperlipidemia; currently not on statin therapy 7. Seasonal ALLERGY - Continue with loratadine 10 mg by mouth daily along with meclizine 12.5 mg twice a day 8. DVT prophylaxis; early ambulation CODE STATUS; full code Patient Condition at Discharge: Fair Plan - Discharge Summary New Discharge Prescriptions: New Ciprofloxacin HCl [Cipro] 500 mg PO Q12HR #20 tablet Continue ALPRAZolam [Xanax] 0.25 mg PO QID Loratadine [Claritin] 10 mg PO DAILY Albuterol Inhaler [Ventolin Hfa Inhaler] 2 puff INHALATION RT-Q4H PRN PRN Reason: Shortness Of Breath Meclizine [Antivert] 12.5 mg PO BID Aspirin EC [Ecotrin Low Dose] 81 mg PO DAILY Ergocalciferol [Vitamin D2 (DRISDOL)] 1 cap PO WEEKLY Cyclobenzaprine [Flexeril] 10 mg PO TID Ibuprofen [Motrin] 800 mg PO TID Discharge Medication List ALPRAZolam [Xanax] 0.25 mg PO QID 10/25/14 [History] Albuterol Inhaler [Ventolin Hfa Inhaler] 2 puff INHALATION RT-Q4H PRN 09/30/18 [ History] Aspirin EC [Ecotrin Low Dose] 81 mg PO DAILY 09/30/18 [History] Loratadine [Claritin] 10 mg PO DAILY 09/30/18 [History] Meclizine [Antivert] 12.5 mg PO BID 09/30/18 [History] Cyclobenzaprine [Flexeril] 10 mg PO TID 10/01/18 [History] Ergocalciferol [Vitamin D2 (DRISDOL)] 1 cap PO WEEKLY 10/01/18 [History] Ibuprofen [Motrin] 800 mg PO TID 10/01/18 [History] Ciprofloxacin HCl [Cipro] 500 mg PO Q12HR #20 tablet 10/03/18 [Rx] Follow up Appointment(s)/Referral(s): Blanca Enriquez MD [Primary Care Provider] - 1-2 days Armando Watson MD [STAFF PHYSICIAN] - 1 Week Discharge Disposition: HOME SELF-CARE
== END 2018-10-03 12:21 | disposition home or self-care (01) | DRG 660 ==
LOC: EC 19:44 → 4MS4W 23:50
PROVIDERS: ADMIT Hospitalist; ATTEND Hospitalist
PROC: 0T768DZ Dilation of Right Ureter with Intraluminal Device, Via Natural or Artificial Opening Endoscopic (ICD-10-PCS; principal; 2018-10-02 11:00)
DX: N20.2 Calculus of kidney with calculus of ureter (principal); Z68.41 Body mass index [BMI] 40.0-44.9, adult; N13.9 Obstructive and reflux uropathy, unspecified; E66.01 Morbid (severe) obesity due to excess calories; J30.2 Other seasonal allergic rhinitis; J44.9 Chronic obstructive pulmonary disease, unspecified; E78.5 Hyperlipidemia, unspecified; F17.210 Nicotine dependence, cigarettes, uncomplicated; F31.9 Bipolar disorder, unspecified; F41.9 Anxiety disorder, unspecified; Z87.442 Personal history of urinary calculi; Z79.899 Other long term (current) drug therapy; Z79.82 Long term (current) use of aspirin; Z98.51 Tubal ligation status; Z99.81 Dependence on supplemental oxygen; Z87.01 Personal history of pneumonia (recurrent); Z88.5 Allergy status to narcotic agent; Z98.890 Other specified postprocedural states; Z80.9 Family history of malignant neoplasm, unspecified
CPT/HCPCS: 36415; 74018; 74176; 74430; 80048; 80053; 81001; 82150; 83605; 83690; 85025; 94640; 94760; 96361; 96365; 96366; 96375; 99285

== ENCOUNTER 2018-12-29 13:38 | Emergency (ER) | payer OTHER ==
[2018-12-29] MEDS ORDERED: ALBUTEROL NEBULIZED 2.5 MG/3 ML INHALATION STA (14:31)
[2018-12-29] MEDS ORDERED: IPRATROPIUM 0.5 MG/2.5 ML NEBU INHALATION STA (14:31)
[2018-12-29] MEDS ORDERED: methylPREDNISolone SOD SUCCI 125 MG/2 ML VIAL IV STA (14:31)
--- NOTE | 2018-12-29 15:21 | ED ---
General Adult HPI - General Chief complaint: Shortness of Breath Stated complaint: SOB chest pain Time Seen by Provider: 12/29/18 14:28 Source: patient, RN notes reviewed, old records reviewed Mode of arrival: ambulatory Limitations: no limitations - History of Present Illness Initial comments: 48-year-old female presenting for evaluation of cough, dyspnea, left-sided chest pain. Symptoms have been present for the past 3 days. She has history of asthma COPD, she is a current smoker. No known history of coronary artery disease, no previous MA, patient does deny abdominal pain or nausea or vomiting. Denies weight gain or lower extremity swelling. No history of fever but has had subjective chills. - Related Data Home Medications Medication Instructions Recorded Confirmed ALPRAZolam [Xanax] 0.25 mg PO QID PRN 10/25/14 12/29/18 Albuterol Inhaler [Ventolin Hfa 2 puff INHALATION RT-Q4H PRN 09/30/18 12/29/18 Inhaler] Aspirin EC [Ecotrin Low Dose] 81 mg PO DAILY 09/30/18 12/29/18 Loratadine [Claritin] 10 mg PO DAILY 09/30/18 12/29/18 Meclizine [Antivert] 12.5 mg PO BID PRN 09/30/18 12/29/18 Cyclobenzaprine [Flexeril] 10 mg PO TID PRN 10/01/18 12/29/18 Ergocalciferol [Vitamin D2 1 cap PO TU 10/01/18 12/29/18 (DRISDOL)] Ibuprofen [Motrin] 800 mg PO TID PRN 10/01/18 12/29/18 Fluticasone/Salmeterol [Advair 1 puff INHALATION RT-BID 12/29/18 12/29/18 250-50 Diskus] Previous Rx's Medication Instructions Recorded Albuterol Inhaler [Ventolin Hfa 1 - 2 puff INHALATION Q4HR PRN #1 12/29/18 Inhaler] inhaler Levofloxacin [Levaquin] 500 mg PO DAILY 7 Days #7 tab 12/29/18 predniSONE 50 mg PO DAILY #5 tab 12/29/18 Allergies Allergy/AdvReac Type Severity Reaction Status Date / Time [id number]-Dab Reductase Allergy Anaphylaxis Verified 12/29/18 14:36 Inhibitor codeine AdvReac Mild Nausea & Verified 12/29/18 13:49 Vomiting Review of Systems ROS Statement: Those systems with pertinent positive or pertinent negative responses have been documented in the HPI. ROS Other: All systems not noted in ROS Statement are negative. Past Medical History Past Medical History: Asthma, COPD, Hyperlipidemia, Musculoskeletal Disorder, Pneumonia, Renal Disease, Respiratory Disorder Additional Past Medical History / Comment(s): Home O2 at 2L-3L/NC prn, RIGHT RENAL CALCULI & gallstone, ANEURYSM RT LUNG in the past but patient thinks it may have resolved, DDD, PAIN LT LOWER BACK, herniated discs.vertigo. History of Any Multi-Drug Resistant Organisms: None Reported Past Surgical History: Section, Cholecystectomy, Orthopedic Surgery, Tubal Ligation, Uterine Ablation Additional Past Surgical History / Comment(s): X2, ANI CARPAL TUNNEL, PAST HX OF RT NEPHROSTOMY TUBE, lithotripsy, PAST PAIN INJ.'S, hernia sx Past Anesthesia/Blood Transfusion Reactions: Motion Sickness, Postoperative Nausea & Vomiting (PONV) Past Psychological History: Anxiety, Bipolar, Depression Smoking Status: Current every day smoker Past Alcohol Use History: None Reported Past Drug Use History: None Reported - Past Family History Father Family Medical History: Cancer Mother Family Medical History: Cancer General Exam Limitations: no limitations General appearance: alert, in no apparent distress Head exam: Present: atraumatic, normocephalic Eye exam: Present: normal appearance, PERRL ENT exam: Present: normal exam Neck exam: Present: normal inspection. Absent: tenderness, meningismus Respiratory exam: Present: wheezes, decreased breath sounds. Absent: respiratory distress Cardiovascular Exam: Present: regular rate, normal rhythm GI/Abdominal exam: Present: soft, distended Extremities exam: Present: normal inspection, normal capillary refill. Absent: pedal edema Neurological exam: Present: alert, oriented X3 Psychiatric exam: Present: normal affect, normal mood Skin exam: Present: warm, dry, intact. Absent: cyanosis, diaphoretic Course Vital Signs 12/29/18 12/29/18 12/29/18 13:51 14:30 14:45 Temperature 98.3 F Pulse Rate 99 84 Respiratory 18 20 20 Rate Blood Pressure 116/65 120/87 O2 Sat by Pulse 90 L 93 L Oximetry 12/29/18 12/29/18 12/29/18 15:00 15:19 15:41 Temperature Pulse Rate 82 82 88 Respiratory 19 Rate Blood Pressure 116/88 O2 Sat by Pulse 93 L Oximetry 12/29/18 12/29/18 16:00 17:16 Temperature 98.7 F Pulse Rate 82 89 Respiratory 19 20 Rate Blood Pressure 116/80 116/67 O2 Sat by Pulse 92 L 93 L Oximetry EKG Findings - EKG Comments: EKG Findings:: EKG: Normal sinus rhythm, left axis deviation, low voltage, rate of 86, TX interval 160, QRS duration 86, QTC 454, no ST segment elevation, T- wave flattening and T-wave inversion in V3. Similar from EKG from October 2017. Medical Decision Making - Medical Decision Making 48-year-old female presenting with cough, dyspnea, and left-sided chest pain. Patient has history COPD. Workup in the emergency department reveals white blood cell count mildly elevated 11.2, stable hemoglobin 16.7, normal CMP, normal lactic acid. Troponin and BNP are negative which is reassuring given the 3 days duration of symptoms. Chest x-ray: No focal pneumonia or pulmonary disease. Patient is offered observation for continued treatment of pneumonia and COPD. She declines. Prefers outpatient treatment. We will be discharged on steroids , antibiotics, and continued use albuterol at home. Return with worsening or changing symptoms. - Lab Data Result diagrams: 12/29/18 15:02 12/29/18 15:02 Lab Results 12/29/18 12/29/18 12/29/18 Range/Units 15:02 15:02 15:02 WBC 11.2 H (3.8-10.6) k/uL RBC 5.29 (3.80-5.40) m/uL Hgb 16.7 H (11.4-16.0) gm/dL Hct 49.8 H (34.0-46.0) % MCV 94.2 (80.0-100.0) fL MCH 31.6 (25.0-35.0) pg MCHC 33.5 (31.0-37.0) g/dL RDW 13.4 (11.5-15.5) % Plt Count 251 (150-450) k/uL Neutrophils % 68 % Lymphocytes % 20 % Monocytes % 5 % Eosinophils % 5 % Basophils % 1 % Neutrophils # 7.6 (1.3-7.7) k/uL Lymphocytes # 2.2 (1.0-4.8) k/uL Monocytes # 0.6 (0-1.0) k/uL Eosinophils # 0.6 (0-0.7) k/uL Basophils # 0.1 (0-0.2) k/uL PT (9.0-12.0) sec INR (<1.2) APTT (22.0-30.0) sec Sodium 139 (137-145) mmol/L Potassium 4.2 (3.5-5.1) mmol/L Chloride 108 H (98-107) mmol/L Carbon Dioxide 25 (22-30) mmol/L Anion Gap 6 mmol/L BUN 10 (7-17) mg/dL Creatinine 0.74 (0.52-1.04) mg/dL Est GFR (CKD-EPI)AfAm >90 (>60 ml/min/1.73 sqM) Est GFR (CKD-EPI)NonAf >90 (>60 ml/min/1.73 sqM) Glucose 103 H (74-99) mg/dL Plasma Lactic Acid Johnathan (0.7-2.0) mmol/L Calcium 9.3 (8.4-10.2) mg/dL Magnesium 1.9 (1.6-2.3) mg/dL Total Bilirubin 0.9 (0.2-1.3) mg/dL AST 27 (14-36) U/L ALT 42 (9-52) U/L Alkaline Phosphatase 80 (38-126) U/L Total Creatine Kinase 264 H (30-135) U/L CK-MB (CK-2) 2.0 (0.0-2.4) ng/mL CK-MB (CK-2) Rel Index 0.8 Troponin I <0.012 (0.000-0.034) ng/mL NT-Pro-B Natriuret Pep pg/mL Total Protein 6.9 (6.3-8.2) g/dL Albumin 4.1 (3.5-5.0) g/dL 12/29/18 12/29/18 12/29/18 Range/Units 15:02 15:02 15:02 WBC (3.8-10.6) k/uL RBC (3.80-5.40) m/uL Hgb (11.4-16.0) gm/dL Hct (34.0-46.0) % MCV (80.0-100.0) fL MCH (25.0-35.0) pg MCHC (31.0-37.0) g/dL RDW (11.5-15.5) % Plt Count (150-450) k/uL Neutrophils % % Lymphocytes % % Monocytes % % Eosinophils % % Basophils % % Neutrophils # (1.3-7.7) k/uL Lymphocytes # (1.0-4.8) k/uL Monocytes # (0-1.0) k/uL Eosinophils # (0-0.7) k/uL Basophils # (0-0.2) k/uL PT 10.1 (9.0-12.0) sec INR 0.9 (<1.2) APTT 23.2 (22.0-30.0) sec Sodium (137-145) mmol/L Potassium (3.5-5.1) mmol/L Chloride (98-107) mmol/L Carbon Dioxide (22-30) mmol/L Anion Gap mmol/L BUN (7-17) mg/dL Creatinine (0.52-1.04) mg/dL Est GFR (CKD-EPI)AfAm (>60 ml/min/1.73 sqM) Est GFR (CKD-EPI)NonAf (>60 ml/min/1.73 sqM) Glucose (74-99) mg/dL Plasma Lactic Acid Johnathan 1.5 (0.7-2.0) mmol/L Calcium (8.4-10.2) mg/dL Magnesium (1.6-2.3) mg/dL Total Bilirubin (0.2-1.3) mg/dL AST (14-36) U/L ALT (9-52) U/L Alkaline Phosphatase (38-126) U/L Total Creatine Kinase (30-135) U/L CK-MB (CK-2) (0.0-2.4) ng/mL CK-MB (CK-2) Rel Index Troponin I (0.000-0.034) ng/mL NT-Pro-B Natriuret Pep 36 pg/mL Total Protein (6.3-8.2) g/dL Albumin (3.5-5.0) g/dL Disposition Clinical Impression: Tobacco abuse, Acute exacerbation of chronic obstructive airways disease Disposition: HOME SELF-CARE Condition: Fair Instructions (If sedation given, give patient instructions): COPD (Chronic Obstructive Pulmonary Disease) (ED) Prescriptions: Albuterol Inhaler [Ventolin Hfa Inhaler] 1 - 2 puff INHALATION Q4HR PRN #1 inhaler PRN Reason: Shortness Of Breath Levofloxacin [Levaquin] 500 mg PO DAILY 7 Days #7 tab predniSONE 50 mg PO DAILY #5 tab Is patient prescribed a controlled substance at d/c from ED?: No Referrals: Blanca Enriquez MD [Primary Care Provider] - 1-2 days Time of Disposition: 17:02
[2018-12-29 15:23] LABS: Basophils # (A) 0.1 k/uL (0-0.2); Basophils % (A) 1 %; Eosinophils # (A) 0.6 k/uL (0-0.7); Eosinophils % (A) 5 %; HCT 49.8 % (34.0-46.0); HGB 16.7 gm/dL (11.4-16.0); Lymphocytes # (A) 2.2 k/uL (1.0-4.8); Lymphocytes % (A) 20 %; MCH 31.6 pg (25.0-35.0); MCHC 33.5 g/dL (31.0-37.0); MCV 94.2 fL (80.0-100.0); Mean Platelet Volume 7.3; Monocytes # (A) 0.6 k/uL (0-1.0); Monocytes % (A) 5 %; Neutrophils # (A) 7.6 k/uL (1.3-7.7); Neutrophils % (A) 68 %; Platelet Count 251 k/uL (150-450); RBC 5.29 m/uL (3.80-5.40); RDW 13.4 % (11.5-15.5); WBC 11.2 k/uL (3.8-10.6)
[2018-12-29 15:35] LABS: ALT 42 U/L (9-52); AST 27 U/L (14-36); Albumin 4.1 g/dL (3.5-5.0); Alkaline Phosphatase 80 U/L (38-126); Anion Gap 6 mmol/L; Blood Urea Nitrogen 10 mg/dL (7-17); Calcium 9.3 mg/dL (8.4-10.2); Carbon Dioxide 25 mmol/L (22-30); Chloride 108 mmol/L (98-107); Glucose 103 mg/dL (74-99); Magnesium 1.9 mg/dL (1.6-2.3); Potassium 4.2 mmol/L (3.5-5.1); Sodium 139 mmol/L (137-145); Total Bilirubin 0.9 mg/dL (0.2-1.3); Total Protein 6.9 g/dL (6.3-8.2)
[2018-12-29 15:36] LABS: Creatine Kinase 264 U/L (30-135)
[2018-12-29 15:45] LABS: INR 0.9 (<1.2); Partial Thromboplastin Time 23.2 sec (22.0-30.0); Prothrombin Time 10.1 sec (9.0-12.0)
[2018-12-29 15:49] LABS: Troponin I <0.012 ng/mL (0.000-0.034)
[2018-12-29] MEDS ORDERED: MORPHINE SULFATE 4 MG/ML SYRINGE IVP STA (16:59)
[2018-12-29 17:18] VITALS: TEMP 98.7
--- NOTE | 2018-12-29 17:43 | XR ---
EXAMINATION TYPE: XR chest 2V DATE OF EXAM: 12/29/2018 COMPARISON: 03/29/2018 HISTORY: Short of breath. Chest pain TECHNIQUE: Frontal and lateral views of the chest are obtained. FINDINGS: There is no heart failure nor confluent pneumonic infiltrate. Costophrenic angles are wade r. There are chest leads. Bony thorax is intact. IMPRESSION: No active cardiopulmonary disease. No change.
[2018-12-29 18:46] VITALS: BP 118/70; PULSE 90; RESP 16
== END 2018-12-29 18:45 | disposition home or self-care (01) ==
LOC: EC 13:38
DX: J44.1 Chronic obstructive pulmonary disease with (acute) exacerbation (principal); Z53.29 Procedure and treatment not carried out because of patient's decision for other reasons; F17.200 Nicotine dependence, unspecified, uncomplicated; Z79.51 Long term (current) use of inhaled steroids; Z79.82 Long term (current) use of aspirin; Z79.899 Other long term (current) drug therapy; Z88.5 Allergy status to narcotic agent; Z88.8 Allergy status to other drugs, medicaments and biological substances
CPT/HCPCS: 36415; 94640; 93005; 83880; 80053; 82550; 82553; 83605; 83735; 84484; 85025; 85610; 85730; 87040; 71046; 99285; 96374; 96375; J2270; J2930

== ENCOUNTER 2019-12-25 10:42 | Emergency (ER) | payer OTHER ==
[2019-12-25 11:44] LABS: Basophils # (A) 0.2 k/uL (0-0.2); Basophils % (A) 2 %; Eosinophils # (A) 0.2 k/uL (0-0.7); Eosinophils % (A) 1 %; HCT 49.4 % (34.0-46.0); HGB 16.9 gm/dL (11.4-16.0); Lymphocytes # (A) 2.5 k/uL (1.0-4.8); Lymphocytes % (A) 16 %; MCH 32.2 pg (25.0-35.0); MCHC 34.1 g/dL (31.0-37.0); MCV 94.5 fL (80.0-100.0); Mean Platelet Volume 7.8; Monocytes # (A) 0.5 k/uL (0-1.0); Monocytes % (A) 3 %; Neutrophils # (A) 11.6 k/uL (1.3-7.7); Neutrophils % (A) 77 %; Platelet Count 275 k/uL (150-450); RBC 5.23 m/uL (3.80-5.40); RDW 12.9 % (11.5-15.5); WBC 15.1 k/uL (3.8-10.6)
[2019-12-25 11:47] LABS: ALT 18 U/L (4-34); AST 21 U/L (14-36); African American GFR (CKD) >90 (>60 ml/min/1.73 sqM); Albumin 4.4 g/dL (3.5-5.0); Alkaline Phosphatase 84 U/L (38-126); Anion Gap 9 mmol/L; Blood Urea Nitrogen 9 mg/dL (7-17); Calcium 9.5 mg/dL (8.4-10.2); Carbon Dioxide 24 mmol/L (22-30); Chloride 105 mmol/L (98-107); Glucose 96 mg/dL (74-99); Non-African American GFR(CKD) 82 (>60 ml/min/1.73 sqM); Potassium 4.2 mmol/L (3.5-5.1); Sodium 138 mmol/L (137-145); Total Bilirubin 0.7 mg/dL (0.2-1.3); Total Protein 7.2 g/dL (6.3-8.2)
[2019-12-25 12:02] LABS: Partial Thromboplastin Time 22.2 sec (22.0-30.0); Prothrombin Time 10.2 sec (9.0-12.0)
--- NOTE | 2019-12-25 12:09 | XR ---
EXAMINATION TYPE: XR chest 2V DATE OF EXAM: 12/25/2019 COMPARISON: 12/19/2018 TECHNIQUE: PA and lateral views submitted. HISTORY: Chest pain FINDINGS: The lungs are clear and there is no pneumothorax, pleural effusion, or focal pneumonia. Coarsened i nterstitium appears stable IMPRESSION: 1. No acute process. Correlate for chronic interstitial lung disease or bronchitis.
--- NOTE | 2019-12-25 12:18 | ED ---
Chest Pain HPI - General Chief Complaint: Chest Pain Stated Complaint: Chest pain Time Seen by Provider: 12/25/19 11:13 Source: patient Mode of arrival: ambulatory Limitations: no limitations - History of Present Illness Initial Comments: The patient is a 41-year-old female past history of congestive heart failure after surgery, COPD on home O2 who presents to the emergency room with reported chest pain. She states that she was sitting at her kitchen table at 9 AM when she had sudden onset of chest pain while she was talking on the phone. She desc ribes it as a burning substernal pain without radiation. States she did not eat prior to the pain starting. Admits to nausea without any vomiting. No diaphoresis. Denies any changes in her oxygenation. States that she normally wears 3 L of oxygen at home when needed. She has not recorded her oxygen and normally wears once a month. No history of PE or DVT. No lower extremity swelling or calf pain. Denies ripping or tearing sensation to her back. No numbness or tingling in her upper extremities. Denies a cough or hemoptysis. Does admit to suprapubic cramping with burning with urination. Denies concern for . No abdominal pain. There are no alleviating, precipitating or modifying factors - Related Data Home Medications Medication Instructions Recorded Confirmed ALPRAZolam [Xanax] 0.25 mg PO QID PRN 10/25/14 12/29/18 Albuterol Inhaler [Ventolin Hfa 2 puff INHALATION RT-Q4H PRN 09/30/18 12/29/18 Inhaler] Aspirin EC [Ecotrin Low Dose] 81 mg PO DAILY 09/30/18 12/29/18 Loratadine [Claritin] 10 mg PO DAILY 09/30/18 12/29/18 Meclizine [Antivert] 12.5 mg PO BID PRN 09/30/18 12/29/18 Cyclobenzaprine [Flexeril] 10 mg PO TID PRN 10/01/18 12/29/18 Ergocalciferol [Vitamin D2 1 cap PO TU 10/01/18 12/29/18 (DRISDOL)] Ibuprofen [Motrin] 800 mg PO TID PRN 10/01/18 12/29/18 Fluticasone/Salmeterol [Advair 1 puff INHALATION RT-BID 12/29/18 12/29/18 250-50 Diskus] Previous Rx's Medication Instructions Recorded Albuterol Inhaler [Ventolin Hfa 1 - 2 puff INHALATION Q4HR PRN #1 12/29/18 Inhaler] inhaler Levofloxacin [Levaquin] 500 mg PO DAILY 7 Days #7 tab 12/29/18 predniSONE 50 mg PO DAILY #5 tab 12/29/18 Allergies Allergy/AdvReac Type Severity Reaction Status Date / Time Fjzkarx-Ebt-Urx Reductase Allergy Anaphylaxis Verified 12/25/19 10:52 Inhibitor codeine AdvReac Mild Nausea & Verified 12/25/19 10:52 Vomiting Review of Systems ROS Statement: Those systems with pertinent positive or pertinent negative responses have been documented in the HPI. ROS Other: All systems not noted in ROS Statement are negative. EKG Findings - EKG Comments: EKG Findings:: EKG demonstrates normal sinus rhythm with a ventricular rate of 80. WA interval 154. QRS 84. QTC of 435. No acute ST segment elevations or depressions concerning for ischemic changes. Inverted T waves in V3. Past Medical History Past Medical History: Asthma, COPD, Hyperlipidemia, Musculoskeletal Disorder, Pneumonia, Renal Disease, Respiratory Disorder Additional Past Medical History / Comment(s): Home O2 at 2L-3L/NC prn, RIGHT RENAL CALCULI & gallstone, ANEURYSM RT LUNG in the past but patient thinks it may have resolved, DDD, PAIN LT LOWER BACK, herniated discs.vertigo. History of Any Multi-Drug Resistant Organisms: None Reported Past Surgical History: Section, Cholecystectomy, Orthopedic Surgery, Tubal Ligation, Uterine Ablation Additional Past Surgical History / Comment(s): X2, ANI CARPAL TUNNEL, PAST HX OF RT NEPHROSTOMY TUBE, lithotripsy, PAST PAIN INJ.'S, hernia sx Past Anesthesia/Blood Transfusion Reactions: Motion Sickness, Postoperative Nausea & Vomiting (PONV) Past Psychological History: Anxiety, Bipolar, Depression Smoking Status: Current every day smoker Past Alcohol Use History: None Reported Past Drug Use History: None Reported - Past Family History Father Family Medical History: Cancer Mother Family Medical History: Cancer General Exam Limitations: no limitations General appearance: alert, in no apparent distress Head exam: Present: atraumatic, normocephalic, normal inspection Eye exam: Present: normal appearance, PERRL, EOMI. Absent: scleral icterus, conjunctival injection, periorbital swelling ENT exam: Present: normal exam, mucous membranes moist Neck exam: Present: normal inspection. Absent: tenderness, meningismus, lymphadenopathy Respiratory exam: Present: normal lung sounds bilaterally. Absent: respiratory distress, wheezes, rales, rhonchi, stridor Cardiovascular Exam: Present: regular rate, normal rhythm, normal heart sounds. Absent: systolic murmur, diastolic murmur, rubs, gallop, clicks GI/Abdominal exam: Present: soft, normal bowel sounds. Absent: distended, tenderness, guarding, rebound, rigid Extremities exam: Present: normal inspection, full ROM, normal capillary refill. Absent: tenderness, pedal edema, joint swelling, calf tenderness Back exam: Present: normal inspection Neurological exam: Present: alert, oriented X3, CN II-XII intact Psychiatric exam: Present: normal affect, normal mood Skin exam: Present: warm, dry, intact, normal color. Absent: rash Course Vital Signs 12/25/19 12/25/19 12/25/19 10:52 11:18 12:11 Temperature 97.8 F 99.2 F Pulse Rate 91 85 74 Pulse Rate [ 85 Pulse Oximetery ] Respiratory 18 22 18 Rate Blood Pressure 111/74 121/75 111/75 O2 Sat by Pulse 95 93 L 98 Oximetry 12/25/19 12/25/19 13:18 14:07 Temperature 98.1 F 99 F Pulse Rate 80 74 Pulse Rate [ Pulse Oximetery ] Respiratory 18 20 Rate Blood Pressure 104/71 111/75 O2 Sat by Pulse 96 94 L Oximetry Chest Pain MDM - MDM Upon arrival the patient was placed into room 18. A thorough history and physical exam was performed a 12-lead EKG was performed. Laboratory studies were conducted. White blood cell count is 15.1. Remainder of CBC is normal. CMP is unremarkable. Troponin is negative. Urinalysis is negative. Chest x- ray is performed which demonstrates no acute findings. I did reevaluate the patient and she feels improved at this time. I did recommend hospitalization for her chest pain. Patient refused. She is alert and oriented. She is capable of making her own decisions. She does understand the risks of leaving which include permanent disability and . She states she would like to follow up with her symptoms in the outpatient setting. The patient will be discharged home at this time. She is asked to follow up with her primary care doctor as soon as possible. Return to the emergency room for any new or worsening symptoms or she does agree to hospitalization. The patient was discharged home in stable condition Disposition Clinical Impression: Chest pain Disposition: HOME SELF-CARE Condition: Stable Instructions (If sedation given, give patient instructions): Chest Pain (ED) Additional Instructions: I did recommend hospital admission. You need to follow-up with your primary care doctor in regards to the chest pain. I did recommend further testing to include an echo and stress test. Please return to the emergency room if you agree to hospital admission or if you have any new or worsening symptoms Is patient prescribed a controlled substance at d/c from ED?: No Referrals: Blanca Enriquez MD [Primary Care Provider] - 1-2 days Time of Disposition: 13:53
[2019-12-25 12:37] LABS: Appearance,Urine Clear (Clear); Bilirubin,Urine Negative (Negative); Blood,Urine Negative (Negative); Color,Urine Light Yellow; Glucose,Urine (UA) Negative (Negative); Ketones,Urine Negative (Negative); Leukocyte Esterase,Urine Negative (Negative); Nitrite,Urine Negative (Negative); Protein,Urine Negative (Negative); Specific Gravity,Urine 1.004 (1.001-1.035); Urobilinogen,Urine <2.0 mg/dL (<2.0)
[2019-12-25 14:08] VITALS: BP 111/75; PULSE 74; RESP 20; TEMP 99
== END 2019-12-25 14:07 | disposition home or self-care (01) ==
LOC: EC 10:42
DX: R07.2 Precordial pain (principal); R11.0 Nausea; R30.0 Dysuria; R10.30 Lower abdominal pain, unspecified; J44.9 Chronic obstructive pulmonary disease, unspecified; F17.200 Nicotine dependence, unspecified, uncomplicated; Z88.5 Allergy status to narcotic agent; Z88.8 Allergy status to other drugs, medicaments and biological substances; Z79.51 Long term (current) use of inhaled steroids; Z79.82 Long term (current) use of aspirin; Z79.899 Other long term (current) drug therapy; Z87.39 Personal history of other diseases of the musculoskeletal system and connective tissue; Z99.81 Dependence on supplemental oxygen; Z53.20 Procedure and treatment not carried out because of patient's decision for unspecified reasons
CPT/HCPCS: 36415; 71046; 80053; 81003; 83690; 83880; 84484; 85025; 85610; 85730; 93005; 99285

== ENCOUNTER → 2020-01-03 | Outpatient (CLI) | payer OTHER ==
[~2020-01-03] MED LIST: REGADENOSON 0.4 MG/5 ML SYRINGE IV ONE
--- NOTE | 2020-01-03 10:51 | ECHOF ---
Referral Reason:R07.9 chest pain MEASUREMENTS -------- HEIGHT: 165.1 cm WEIGHT: 99.8 kg BP: RVIDd: 2.7 cm (< 3.3) IVSd: 1.1 cm (0.6 - 1.1) LVIDd: 4.1 cm (3.9 - 5.3) LVPWd: 1.2 cm (0.6 - 1.1) IVSs: 1.5 cm LVIDs: 2.8 cm LVPWs: 1.6 cm LAESV Index (A-L): 18.82 ml/m Ao Diam: 2.5 cm (2.0 - 3.7) AV Cusp: 1.7 cm (1.5 - 2.6) LA Diam: 3.5 cm (2.7 - 3.8) MV EXCURSION: 13.189 mm (> 18.000) MV EF SLOPE: 84 mm/s (70 - 150) EPSS: 1.0 cm MV E Lazarus: 0.79 m/s MV DecT: 301 ms MV A Lazarus: 0.85 m/s MV E/A Ratio: 0.92 RAP: 5.00 mmHg RVSP: 10.41 mmHg FINDINGS -------- Sinus rhythm. This was a technically good study. The left ventricular size is normal. There is borderline concentric left ventricular hypertrophy. Overall left ventricular systolic function is normal with, an EF between 55 - 60 %. The diastolic filling pattern is normal for the age of the patient 11.33. The right ventricle is normal in size. The left atrial size is normal. Normal LA size by volume 22+/-6 ml/m2. The right atrial size is normal. The aortic valve is trileaflet and appears structurally normal. The mitral valve is normal. There is trace mitral regurgitation. The tricuspid valve appears structurally normal. Trace tricuspid regurgitation present. Right anoop tricular systolic pressure is normal at < 35 mmHg. There is no pulmonic regurgitation present. The aortic root size is normal. Normal inferior vena cava with normal inspiratory collapse consistent with estimated right atrial pre ssure of 5 mmHg. There is no pericardial effusion. CONCLUSIONS -------- 1. Sinus rhythm. 2. This was a technically good study. 3. The left ventricular size is normal. 4. There is borderline concentric left ventricular hypertrophy. 5. Overall left ventricular systolic function is normal with, an EF between 55 - 60 %. 6. The diastolic filling pattern is normal for the age of the patient 11.33 7. The right ventricle is normal in size. 8. The left atrial size is normal. 9. Normal LA size by volume 22+/-6 ml/m2. 10. The right atrial size is normal. 11. The aortic valve is trileaflet and appears structurally normal. 12. The mitral valve is normal. 13. There is trace mitral regurgitation. 14. The tricuspid valve appears structurally normal. 15. Trace tricuspid regurgitation present. 16. Right ventricular systolic pressure is normal at < 35 mmHg. 17. There is no pulmonic regurgitation present. 18. The aortic root size is normal. 19. Normal inferior vena cava with normal inspiratory collapse consistent with estimated right atrial pressure of 5 mmHg. 20. There is no pericardial effusion. MITER SAWYER: Beulah Gil RDCS
--- NOTE | 2020-01-03 11:10 | NM ---
EXAMINATION TYPE: NM stress lexiscan cardiolite DATE OF EXAM: 01/03/2020 COMPARISON: NONE HISTORY: Chest pain TECHNIQUE: After the intravenous administration of 10.48 mCi Tc 99m Sestamibi - Cardiolite resting S PECT images acquired 77 minutes post injection. The patient received 0.4mg Lexiscan, 24.6 mCi Tc 99m Sestamibi - Stress images obtained [address] injection FINDINGS: No fixed or reversible perfusion defects are evident. Gated wall motion appears normal. Eje ction fraction of 65% is normal. IMPRESSION: 1. No stress-induced ischemic changes. 2. No prior infarcts. 3. Normal wall motion and ejection fraction
--- NOTE | 2020-01-03 12:48 | EST ---
EXERCISE STRESS DATE OF SERVICE: 01/03/2020 AGE: 49 SEX: Female HT: 65" WT: 220 pounds PROTOCOL: Lexiscan Cardiolite STAGE: DURATION OF EXERCISE: HEART RATE REST: 83 BLOOD PRESSURE REST: 121/80 MAXIMUM HEART RATE ACHIEVED: 99 MAXIMUM BLOOD PRESSURE: 121/80 85% MPHR: 146 100% MPHR: 172 METS: INDICATIONS: History of chest pain. CLINICAL INFORMATION: Baseline heart rate 83 beats per minute. Baseline blood pressure 121/80 mmHg. Baseline 12-lead ECG shows normal sinus rhythm, normal cardiac intervals. Patient received Lexiscan infusion per protocol. Baseline 12-lead ECG shows normal sinus rhythm, normal cardiac intervals, normal ST segments. There is no ECG evidence for ischemia noted. noted. Nuclear portion of the stress test will be reported separately. MMODL / IJN: [id number] /
== END | disposition home or self-care (01) ==
LOC: RADNMMAIN 07:51
PROVIDERS: ATTEND Nurse Practitioner Family
DX: I51.7 Cardiomegaly (principal); R07.9 Chest pain, unspecified
CPT/HCPCS: 93017; 93306; 78452; A9500; J2785

== ENCOUNTER → 2021-01-10 | Outpatient (CLI) | payer OTHER ==
--- NOTE | 2021-01-10 22:04 | XR ---
EXAMINATION TYPE: XR chest 2V DATE OF EXAM: 01/10/2021 COMPARISON: 12/25/2019. HISTORY: Chest pain. TECHNIQUE: Frontal and lateral views of the chest are obtained. FINDINGS: There is mild prominence of interstitial markings with bibasilar hazy opacity. No pleural effusion, or pneumothorax seen. The cardiac silhouette size is within normal limits. The osseous s tructures are intact. IMPRESSION: Probable mild interstitial edema/atelectasis. No significant infiltrate.
== END | disposition home or self-care (01) ==
LOC: RADXRMAIN 16:17
PROVIDERS: ATTEND Internal Medicine Sleep Medicine
DX: R91.1 Solitary pulmonary nodule (principal)
CPT/HCPCS: 71046

== ENCOUNTER → 2021-08-13 | Outpatient (CLI) | payer OTHER ==
--- NOTE | 2021-08-14 12:12 | MM ---
Reason for exam: screening (asymptomatic). Baseline mammogram. Physical Findings: Nurse did not find any significant physical abnormalities on exam. MG 3D Screening Mammo W/Cad Bilateral CC and MLO view(s) were taken. XCCL view(s) were taken of the right breast. The breast tissue is heterogeneously dense. This may lower the sensitivity of mammography. Stable benign calcifications. There is no discrete abnormality. ASSESSMENT: Benign, BI-RAD 2 RECOMMENDATION: Routine screening mammogram of both breasts in 1 year.
== END | disposition home or self-care (01) ==
LOC: RADMAMWWP 10:05
PROVIDERS: ATTEND Family Medicine
DX: Z12.31 Encounter for screening mammogram for malignant neoplasm of breast (principal); R92.1 Mammographic calcification found on diagnostic imaging of breast
CPT/HCPCS: 77063; 77067

== ENCOUNTER → 2021-09-25 | Outpatient (CLI) | payer OTHER ==
--- NOTE | 2021-09-25 14:35 | CTL ---
EXAMINATION TYPE: CT Low Dose Lung DATE OF EXAM ORDERED: 09/25/2021 HISTORY: Long-term tobacco use. Lung cancer screening CT DLP: 2.[address] CTDI: 91.60 mGy Automated exposure control for dose reduction was used. SCREENING VISIT: Baseline COMPARISON: None TECHNIQUE: Low dose computed tomography scan was performed through the chest at 1 mm thick sections a nd reconstructed images in multiple planes at 1 mm and [address] DIAGNOSTIC QUALITY: Limited, but interpretable Secondary to body habitus. FINDINGS: LUNG NODULES: Present, detailed below: Suggestion of scattered micronodules diffusely in the upper michelle ngs There is a suspicious 2.8 x 2.1 cm nodule running along course of branching right lower lobe pulmonar y artery axial image 139. This is difficult to accurately measure as there is some overlap with the b ranching artery but underlying nodularity is definitely present. Smaller peripheral 3.8 x 4.4 mm right lower lobe nodule axial image 144. LUNGS: COPD: Severity: Mild/Moderate Fibrosis: Severity: None Lymph nodes: None Other findings: None RIGHT PLEURAL SPACE: Effusion: None Calcification: None Thickening: None Pneumothorax: None LEFT PLEURAL SPACE: Effusion: None Calcification: None Thickening: None Pneumothorax: None HEART: Heart Size: Normal Coronary calcification: Mild to moderate Pericardial effusion: None OTHER FINDINGS: Upper abdomen: Cholecystectomy clips. Partial visualization of exophytic at least 6.5 cm low dense le cesar posterior upper pole left kidney consistent with simple thin-walled cyst on CT abdomen September 30, 2018 Bony thorax: None Supraclavicular region: None Other: None IMPRESSION: Suboptimal study with suspicious medial right lower lobe nodule likely measuring near 2.[address] LUNG RAD AND CT CHEST RECOMMENDATION: Lung-Rad 4B or 4X Very Suspicious: Follow-up Chest CT with o r without contrast or PET/CT and/or tissue sampling. PET/CT may be used when there is a > 8 mm solid component. S Modifier (other clinically significant findings): None Recommendation: Advise contrast enhanced chest CT now to better evaluate size of the central right lo wer lobe nodule.
== END | disposition home or self-care (01) ==
LOC: RADCTMAIN 13:49
PROVIDERS: ATTEND Family Medicine
DX: Z12.2 Encounter for screening for malignant neoplasm of respiratory organs (principal); Z72.0 Tobacco use
CPT/HCPCS: 71271

== ENCOUNTER → 2021-10-23 | Outpatient (CLI) | payer OTHER ==
--- NOTE | 2021-10-23 15:08 | CT ---
EXAMINATION TYPE: CT chest wo/w con DATE OF EXAM: 10/23/2021 COMPARISON: CT angiogram of the chest 10/26/2014, low-dose chest CT dated 09/25/2021 HISTORY: Abnormal chest CT. CT DLP: 1651 mGycm Automated exposure control for dose reduction was used. CONTRAST: CT scan of the chest is performed with IV Contrast, patient injected with 100ml mL of Isovue 300. FINDINGS: LUNGS: The lungs are grossly clear, there is no concerning parenchymal mass or nodule identified. T here is no pleural effusion or pneumothorax seen. The tracheobronchial tree is patent. MEDIASTINUM: The abnormality seen on prior CT was noted to be present and enhanced on CT of 4, similar in appearance, findings suggest pulmonary venous varix, stable. Coronary artery calcificat ions are present. Pleural-parenchymal changes within the lungs show similar appearance. AORTA: No additional significant abnormality is seen. OTHER: Liver shows low attenuation likely due to hepatic steatosis. Patient is post cholecystectomy. Cystic changes are present associated with the kidneys. Splenic artery aneurysm measuring approximat colette 16 x 18 mm and is partially calcified and stable. Duodenal diverticulum is present. IMPRESSION: Pulmonary vein varix is stable.
== END | disposition home or self-care (01) ==
LOC: RADCTMAIN 10:48
PROVIDERS: ATTEND Family Medicine
DX: I86.8 Varicose veins of other specified sites (principal)
CPT/HCPCS: 71270; Q9967

== ENCOUNTER → 2022-03-26 | Outpatient (CLI) | payer OTHER ==
[2022-03-26 17:48] LABS: HCT 49.6 % (37.2-46.3); HGB 16.1 g/dL (12.0-15.0); MCH 31.6 pg (27.0-32.0); MCHC 32.5 g/dL (32.0-37.0); MCV 97.3 fL (80.0-97.0); Mean Platelet Volume 9.8 fL (9.5-12.2); NRBC Per 100 WBC 0 /100 WBCS (0.0-0.0); Platelet Count 218 X 10*3/uL (140-440); RDW 12.8 % (11.5-14.5); WBC 8.48 X 10*3/uL (4.50-10.00)
[2022-03-26 17:55] LABS: African American GFR (CKD) 76.1 (60.0-200.0); Anion Gap 9.7 mmol/L (10.00-18.00); Carbon Dioxide 27.3 mmol/L (20.0-27.5); Non-African American GFR(CKD) 65.6 (60.0-200.0); Potassium 4.8 mmol/L (3.5-5.5)
== END | disposition home or self-care (01) ==
LOC: LABPAT 10:59
PROVIDERS: ATTEND Internal Medicine Interventional Cardiology
DX: Z01.812 Encounter for preprocedural laboratory examination (principal); R07.9 Chest pain, unspecified
CPT/HCPCS: 36415; 80051; 82565; 84520; 85027

== ENCOUNTER → 2022-04-06 | Day surgery (SDC) | payer OTHER ==
[2022-04-02 14:20] VITALS: BMI 43.6
[~2022-04-06] MED LIST changes: +ALPRAZolam 0.25 MG TAB PO PRN; +ALPRAZolam 0.5 MG TAB ONE; +ALPRAZolam 0.5 MG TAB PO PRN; +ASPIRIN 325 MG TAB PO STA; +HEPARIN SODIUM 1,000 UN/ML (10ML VL) IV ONE; +HEPARIN SODIUM 1,000 UN/ML (10ML VL) ONE; +IOPAMIDOL-370 125ML BTL INJ ONE; +LIDOCAINE 1% INJ 10MG/ML (5 ML VIAL-PF) SQ ONE; +MIDAZOLAM 2 MG/2 ML VIAL IV ONE; +NITROGLYCERIN SL TABS 0.4 MG TAB SUBLINGUAL PRN; -REGADENOSON 0.4 MG/5 ML SYRINGE IV ONE; +RX INFO: IV CONTRAST WAS GIVEN 1 EACH MISC MISCELLANE PRN; +SODIUM CHLORIDE 0.9% 1,000 ML IV SCH; +SODIUM CHLORIDE 0.9% 1,000 ML in EMPTY BAG 1 BAG IV SCH; +VERAPAMIL 2.5 MG/ML 2 ML AMP ONE
[2022-04-06 07:17] VITALS: TEMP 98.2
[2022-04-06] MEDS: VERAPAMIL SYRINGE (5 MG/10 ML) INTRAARTER ONE ×2 (07:48→07:58)
--- NOTE | 2022-04-06 08:06 | P.PCN ---
Date of Procedure: 04/06/22 Operative Findings: CARDIAC CATHETERIZATION PERFORMING PHYSICIAN: Westley Vee MD, RPVI PROCEDURE PERFORMED: 1. Selective right and left coronary angiogram 2. Left heart catheterization INDICATION: Chest discomfort concerning for angina COMPLICATION: None APPROACH: Right radial artery LEVEL OF SEDATION: Moderate with a sedation length of 14 minutes PROCEDURE DESCRIPTION: After obtaining an informed consent, the patient was brought to cardiac carpenter/labor. Local anesthesia was performed using lidocaine subcutaneously. The right radial artery was cannulated using Seldinger technique, the guidewire passed easily, following that we advanced a 5-[place] sheath dilator assembly, the wire and dilator were removed and sheath was flushed. Following that, 2 mg of verapamil along with 5000 unit heparin were given. Selective right and left coronary angiogram using a 6-[place] JR4 and JL 3.5 catheters. Following that we did left heart catheterization using 6-[place] pigtail catheter. The procedure was completed there was no complication. SELECTIVE CORONARY ANGIOGRAM: The right coronary artery: Is a large caliber vessel and is dominant vessel. Its angiographically normal distally bifurcates into PDA and PLV branches both appeared to be angiographically normal. Left main: Is angiographically normal. Bifurcates into a CXR and LAD The left circumflex: Is angiographically normal. Gives rise into a large first and second obtuse marginal branches and both appeared to be angiographically normal The left anterior descending artery: Angiographically normal. Gives rise into a large diagonal branch which seems to be normal. HEMODYNAMICS: The LVEDP was 8 mmHg and no significant gradient across aortic valve CONCLUSION: 1. Normal coronary angiogram 2. Normal left-sided filling pressure POSTPROCEDURE MANAGEMENT: Medical treatment and follow-up with the base
[2022-04-06 11:10] VITALS: BP 117/62; PULSE 82; RESP 18
== END ==
LOC: CATHCVL 06:27
PROVIDERS: ATTEND Internal Medicine Interventional Cardiology
DX: R07.89 Other chest pain (principal); R94.31 Abnormal electrocardiogram [ECG] [EKG]; I10 Essential (primary) hypertension; E78.5 Hyperlipidemia, unspecified; E66.9 Obesity, unspecified; Z20.822 Contact with and (suspected) exposure to COVID-19; Z68.41 Body mass index [BMI] 40.0-44.9, adult; Z79.899 Other long term (current) drug therapy; Z79.82 Long term (current) use of aspirin; Z79.51 Long term (current) use of inhaled steroids; Z88.5 Allergy status to narcotic agent; Z88.8 Allergy status to other drugs, medicaments and biological substances
CPT/HCPCS: 93458; 87635; C1894; J2250; J2001; J1644; Q9967

== ENCOUNTER 2022-06-21 12:21 | Emergency (ER) | payer OTHER ==
[2022-06-21 12:28] VITALS: TEMP 98.3
[2022-06-21] MEDS ORDERED: HYDROmorphone 0.5 MG/0.5 ML SYRINGE IVP STA (12:58)
[2022-06-21 13:28] LABS: Appearance,Urine Clear (Clear); Basophils # (A) 0.1 k/uL (0-0.2); Basophils % (A) 1 %; Bilirubin,Urine Negative (Negative); Blood,Urine Negative (Negative); Color,Urine Light Yellow; Eosinophils # (A) 0.3 k/uL (0-0.7); Eosinophils % (A) 3 %; Glucose,Urine (UA) Negative (Negative); HCT 51.6 % (34.0-46.0); HGB 17.3 gm/dL (11.4-16.0); Ketones,Urine Negative (Negative); Leukocyte Esterase,Urine Negative (Negative); Lymphocytes # (A) 2.4 k/uL (1.0-4.8); Lymphocytes % (A) 24 %; MCH 32.1 pg (25.0-35.0); MCHC 33.5 g/dL (31.0-37.0); Mean Platelet Volume 7.8; Monocytes # (A) 0.4 k/uL (0-1.0); Monocytes % (A) 4 %; Neutrophils # (A) 6.8 k/uL (1.3-7.7); Neutrophils % (A) 68 %; Nitrite,Urine Negative (Negative); Platelet Count 246 k/uL (150-450); Protein,Urine Negative (Negative); RBC 5.37 m/uL (3.80-5.40); RDW 12.7 % (11.5-15.5); Specific Gravity,Urine 1.007 (1.001-1.035); Urobilinogen,Urine <2.0 mg/dL (<2.0)
--- NOTE | 2022-06-21 13:31 | ED ---
General Adult HPI - General Chief complaint: Urogenital Stated complaint: kidney stone Time Seen by Provider: 06/21/22 12:53 Source: patient, RN notes reviewed, old records reviewed Mode of arrival: ambulatory Limitations: no limitations - History of Present Illness Initial comments: 52-year-old female history of kidney stone presenting with right flank pain over the past several days. Patient was seen by primary care and had urinalysis performed which she states did show hematuria. She denies fever. Denies vomiting. Denies upper abdominal pain - Related Data Home Medications Medication Instructions Recorded Confirmed ALPRAZolam [Xanax] 0.5 mg PO QID PRN 10/25/14 04/06/22 Aspirin EC [Ecotrin Low Dose] 81 mg PO DAILY 09/30/18 04/06/22 Loratadine [Claritin] 10 mg PO DAILY 09/30/18 04/06/22 Meclizine [Antivert] 12.5 mg PO BID PRN 09/30/18 04/02/22 Cyclobenzaprine [Flexeril] 10 mg PO TID PRN 10/01/18 04/06/22 Ergocalciferol [Vitamin D2 1 cap PO TU 10/01/18 04/06/22 (DRISDOL)] Ibuprofen [Motrin] 800 mg PO TID PRN 10/01/18 04/06/22 Fluticasone Propion/Salmeterol 1 puff INHALATION RT-BID 12/29/18 04/06/22 [Advair 250-50 Diskus] Albuterol Nebulized [Ventolin 2.5 mg INHALATION Q4H PRN 04/02/22 04/06/22 Nebulized] Previous Rx's Medication Instructions Recorded Albuterol Inhaler [Ventolin Hfa 1 - 2 puff INHALATION Q4HR PRN #1 12/29/18 Inhaler] inhaler Allergies Allergy/AdvReac Type Severity Reaction Status Date / Time Wpbifne-WIQ-CnS Reductase Allergy Anaphylaxis Verified 06/21/22 12:28 Inhibitor [Pggylgg-Tsp-Cbz Reductase Inhibitor] codeine AdvReac Mild Nausea & Verified 06/21/22 12:28 Vomiting Review of Systems ROS Statement: Those systems with pertinent positive or pertinent negative responses have been documented in the HPI. ROS Other: All systems not noted in ROS Statement are negative. Past Medical History Past Medical History: Asthma, Heart Failure, COPD, CVA/TIA, Hyperlipidemia, Musculoskeletal Disorder, Pneumonia, Respiratory Disorder Additional Past Medical History / Comment(s): Home O2 at 2L-3L/NC prn, RIGHT RENAL CALCULI, ANEURYSM RT LUNG in the past but patient thinks it may have resolved, DDD, PAIN LT LOWER BACK, herniated discs.vertigo. HEART FAILURE 2016, GLAUCOMA-HAD SURGERY History of Any Multi-Drug Resistant Organisms: CRE, Other MDRO Date of last positivie culture/infection: 12/18/21 MDRO Source:: URINE Past Surgical History: Section, Cholecystectomy, Orthopedic Surgery, Tubal Ligation, Uterine Ablation Additional Past Surgical History / Comment(s): X2, ANI CARPAL TUNNEL, PAST HX OF RT NEPHROSTOMY TUBE, lithotripsy, PAST PAIN INJ.'S, hernia sx X 2, BILATERAL EYES-GLAUCOMA SURGERY, BILATERAL WRIST SURGERY-CARPAL TUNNEL Past Anesthesia/Blood Transfusion Reactions: Motion Sickness, Postoperative Nausea & Vomiting (PONV) Past Psychological History: Anxiety, Bipolar, Depression, PTSD Smoking Status: Current every day smoker Past Alcohol Use History: None Reported Past Drug Use History: Marijuana - Past Family History Father Family Medical History: Cancer Mother Family Medical History: Cancer General Exam Limitations: no limitations General appearance: alert, in no apparent distress Head exam: Present: atraumatic, normocephalic Eye exam: Present: normal appearance ENT exam: Present: normal exam Neck exam: Present: normal inspection. Absent: tenderness, meningismus Respiratory exam: Present: decreased breath sounds. Absent: respiratory dis tress, wheezes Cardiovascular Exam: Present: regular rate, normal rhythm GI/Abdominal exam: Present: soft. Absent: distended, tenderness, guarding, r ebound Extremities exam: Present: normal inspection, normal capillary refill. Absent: pedal edema Back exam: Absent: CVA tenderness (R), CVA tenderness (L) Neurological exam: Present: alert, oriented X3, CN II-XII intact. Absent: motor sensory deficit Psychiatric exam: Present: normal affect, normal mood Skin exam: Present: warm, dry, intact. Absent: cyanosis, diaphoretic Course Vital Signs 06/21/22 06/21/22 12:24 13:39 Temperature 98.3 F Pulse Rate 98 87 Respiratory 20 16 Rate Blood Pressure 146/92 115/82 O2 Sat by Pulse 88 L 90 L Oximetry Medical Decision Making - Medical Decision Making 32-year-old female with right flank pain history of renal stones. CT performed showing bilateral renal cysts and bilateral nonobstructing renal stones. No hydronephrosis or hydroureter. No findings to explain the patient's pain currently. Urinalysis is negative for blood. She has a normal white blood cell count, elevated hemoglobin in the setting of COPD. Normal electrolytes. Patient stable for discharge at this time. - Lab Data Result diagrams: 06/21/22 13:22 06/21/22 13:22 Lab Results 06/21/22 06/21/22 06/21/22 Range/Units 13:22 13:22 13:22 WBC 10.0 (3.8-10.6) k/uL RBC 5.37 (3.80-5.40) m/uL Hgb 17.3 H (11.4-16.0) gm/dL Hct 51.6 H (34.0-46.0) % MCV 96.0 (80.0-100.0) fL MCH 32.1 (25.0-35.0) pg MCHC 33.5 (31.0-37.0) g/dL RDW 12.7 (11.5-15.5) % Plt Count 246 (150-450) k/uL MPV 7.8 Neutrophils % 68 % Lymphocytes % 24 % Monocytes % 4 % Eosinophils % 3 % Basophils % 1 % Neutrophils # 6.8 (1.3-7.7) k/uL Lymphocytes # 2.4 (1.0-4.8) k/uL Monocytes # 0.4 (0-1.0) k/uL Eosinophils # 0.3 (0-0.7) k/uL Basophils # 0.1 (0-0.2) k/uL PT 10.4 (9.0-12.0) sec INR 0.9 (<1.2) APTT 22.6 (22.0-30.0) sec Sodium (137-145) mmol/L Potassium (3.5-5.1) mmol/L Chloride (98-107) mmol/L Carbon Dioxide (22-30) mmol/L Anion Gap mmol/L BUN (7-17) mg/dL Creatinine (0.52-1.04) mg/dL Est GFR (CKD-EPI)AfAm (>60 ml/min/1.73 sqM) Est GFR (CKD-EPI)NonAf (>60 ml/min/1.73 sqM) Glucose (74-99) mg/dL Calcium (8.4-10.2) mg/dL Total Bilirubin (0.2-1.3) mg/dL AST (14-36) U/L ALT (4-34) U/L Alkaline Phosphatase (38-126) U/L Total Protein (6.3-8.2) g/dL Albumin (3.5-5.0) g/dL Lipase (23-300) U/L Urine Color Light Yellow Urine Appearance Clear (Clear) Urine pH 7.0 (5.0-8.0) Ur Specific Free [place] 1.007 (1.001-1.035) Urine Protein Negative (Negative) Urine Glucose (UA) Negative (Negative) Urine Ketones Negative (Negative) Urine Blood Negative (Negative) Urine Nitrite Negative (Negative) Urine Bilirubin Negative (Negative) Urine Urobilinogen <2.0 (<2.0) mg/dL Ur Leukocyte Esterase Negative (Negative) 06/21/22 Range/Units 13:22 WBC (3.8-10.6) k/uL RBC (3.80-5.40) m/uL Hgb (11.4-16.0) gm/dL Hct (34.0-46.0) % MCV (80.0-100.0) fL MCH (25.0-35.0) pg MCHC (31.0-37.0) g/dL RDW (11.5-15.5) % Plt Count (150-450) k/uL MPV Neutrophils % % Lymphocytes % % Monocytes % % Eosinophils % % Basophils % % Neutrophils # (1.3-7.7) k/uL Lymphocytes # (1.0-4.8) k/uL Monocytes # (0-1.0) k/uL Eosinophils # (0-0.7) k/uL Basophils # (0-0.2) k/uL PT (9.0-12.0) sec INR (<1.2) APTT (22.0-30.0) sec Sodium 138 (137-145) mmol/L Potassium 4.5 (3.5-5.1) mmol/L Chloride 104 (98-107) mmol/L Carbon Dioxide 26 (22-30) mmol/L Anion Gap 8 mmol/L BUN 16 (7-17) mg/dL Creatinine 0.85 (0.52-1.04) mg/dL Est GFR (CKD-EPI)AfAm >90 (>60 ml/min/1.73 sqM) Est GFR (CKD-EPI)NonAf 80 (>60 ml/min/1.73 sqM) Glucose 125 H (74-99) mg/dL Calcium 9.6 (8.4-10.2) mg/dL Total Bilirubin 0.5 (0.2-1.3) mg/dL AST 22 (14-36) U/L ALT 24 (4-34) U/L Alkaline Phosphatase 91 (38-126) U/L Total Protein 7.2 (6.3-8.2) g/dL Albumin 4.4 (3.5-5.0) g/dL Lipase 166 (23-300) U/L Urine Color Urine Appearance (Clear) Urine pH (5.0-8.0) Ur Specific Free [place] (1.001-1.035) Urine Protein (Negative) Urine Glucose (UA) (Negative) Urine Ketones (Negative) Urine Blood (Negative) Urine Nitrite (Negative) Urine Bilirubin (Negative) Urine Urobilinogen (<2.0) mg/dL Ur Leukocyte Esterase (Negative) Disposition Clinical Impression: Flank pain Disposition: HOME SELF-CARE Condition: Fair Instructions (If sedation given, give patient instructions): Flank Pain (ED) Is patient prescribed a controlled substance at d/c from ED?: No Referrals: Blanca Enriquez MD [Primary Care Provider] - 1-2 days Time of Disposition: 14:32
[2022-06-21 13:36] LABS: ALT 24 U/L (4-34); AST 22 U/L (14-36); African American GFR (CKD) >90 (>60 ml/min/1.73 sqM); Albumin 4.4 g/dL (3.5-5.0); Alkaline Phosphatase 91 U/L (38-126); Anion Gap 8 mmol/L; Blood Urea Nitrogen 16 mg/dL (7-17); Calcium 9.6 mg/dL (8.4-10.2); Carbon Dioxide 26 mmol/L (22-30); Chloride 104 mmol/L (98-107); Glucose 125 mg/dL (74-99); Lipase 166 U/L (23-300); Non-African American GFR(CKD) 80 (>60 ml/min/1.73 sqM); Potassium 4.5 mmol/L (3.5-5.1); Sodium 138 mmol/L (137-145); Total Bilirubin 0.5 mg/dL (0.2-1.3); Total Protein 7.2 g/dL (6.3-8.2)
[2022-06-21 13:37] LABS: INR 0.9 (<1.2); Partial Thromboplastin Time 22.6 sec (22.0-30.0); Prothrombin Time 10.4 sec (9.0-12.0)
--- NOTE | 2022-06-21 14:23 | CT ---
EXAMINATION TYPE: CT abdomen pelvis wo con DATE OF EXAM: 06/21/2022 COMPARISON: 09/30/2018 HISTORY: Right sided flank pain CT DLP: 1600 mGycm Automated exposure control for dose reduction was used. Images obtained from the diaphragm to the floor the pelvis with no contrast. The lung bases are clear. No pleural effusion. Heart size is normal. No pericardial effusion. Liver spleen and stomach pancreas appear intact. Bile ducts are not dilated. There are clips from cho lecystectomy. There is no adrenal mass. There is 6.5 cm cortical cyst upper pole left kidney. There a re other multiple smaller renal cortical cysts. There are multiple bilateral renal calculi that measu re up to 7 mm. No hydronephrosis. Ureters are not dilated. There is no retroperitoneal adenopathy. Ap pendix is posterior and appears normal. The bladder distends smoothly. No inguinal hernia. Uterus is anteverted. No pelvic mass. No free fluid in the pelvis. There are a few sigmoid diverticula. No dive rticulitis. There is no mesenteric edema. No ascites or free air. No bowel obstruction. The lumbar vertebra have normal alignment. No compression fracture. Facet joints are intact. The bony pelvis is intact. Hip joints are intact. IMPRESSION: Multiple nonobstructing bilateral renal calculi. Multiple renal cortical cysts. Normal appendix. Ther e is clearing of the right-sided obstruction compared to old exam.
[2022-06-21 15:03] VITALS: BP 137/93; PULSE 82; RESP 18
== END 2022-06-21 15:03 | disposition home or self-care (01) ==
LOC: EC 12:21
DX: R10.9 Unspecified abdominal pain (principal); J44.9 Chronic obstructive pulmonary disease, unspecified; E78.5 Hyperlipidemia, unspecified; F17.200 Nicotine dependence, unspecified, uncomplicated; Z88.8 Allergy status to other drugs, medicaments and biological substances
CPT/HCPCS: 36415; 80053; 83690; 85025; 85610; 85730; 81003; 74176; 99284; 96374; J1170

== ENCOUNTER 2023-01-27 07:44 | Day surgery (SDC) | payer OTHER ==
[2023-01-21 09:35] VITALS: BMI 39.9
--- NOTE | 2023-01-26 15:10 | P.GSHP ---
History of Present Illness H&P Date: 01/26/23 52 yo female came via theer with right flank pain. SHe was identified to have bilateral renal cysts and small bilateral renal stones. There were no ureteral stones nor obstruction/ We discussed that the stones may but not necessarily as the cause of her pain. SHe was given treatment options.. She would like the stones removed SHe this comes for bilateral ureteroscopy, laser lithotripsy and possible stent placement. The risks including infection, ureteral injury, persistence of pain have been explained understood and accepted. - Constitutional Constitutional: Denies chills, Denies fever - EENT Eyes: denies blurred vision, denies pain Ears, nose, mouth and throat: Denies headache, Denies sore throat - Cardiovascular Cardiovascular: Denies chest pain, Denies shortness of breath - Respiratory Respiratory: Denies cough, Denies 7 - Gastrointestinal Gastrointestinal: Denies abdominal pain, Denies diarrhea, Denies nausea, Denies vomiting - Genitourinary (Female) Genitourinary: Denies dysuria, Denies hematuria - Genitourinary (Male) Genitourinary: Denies dysuria, Denies hematuria - Musculoskeletal Musculoskeletal: Denies myalgias - Integumentary Integumentary: Denies pruritus, Denies rash - Neurological Neurological: Denies numbness, Denies weakness - Psychiatric Psychiatric: Denies anxiety, Denies depression - Endocrine Endocrine: Denies fatigue, Denies weight change Past Medical History Past Medical History: Asthma, Heart Failure, COPD, CVA/TIA, Hyperlipidemia, Musculoskeletal Disorder, Pneumonia, Respiratory Disorder Additional Past Medical History / Comment(s): Home O2 at 2L-3L 07/06, RENAL CALCULI, ANEURYSM RT LUNG (in the past but patient thinks it may have resolved), DDD, PAIN LOWER BACK, herniated discs, vertigo, HEART FAILURE 2016, GLAUCOMA-HAD SURGERY History of Any Multi-Drug Resistant Organisms: CRE, Other MDRO Date of last positivie culture/infection: 12/18/21 MDRO Source:: URINE Past Surgical History: Section, Cholecystectomy, Hernia Repair, Orthopedic Surgery, Tubal Ligation, Uterine Ablation Additional Past Surgical History / Comment(s): X2, ANI CARPAL TUNNEL, PAST HX OF RT NEPHROSTOMY TUBE, lithotripsy, PAST PAIN INJ.'S, hernia sx X 2, BILATERAL EYES-GLAUCOMA SURGERY, BILATERAL WRIST SURGERY-CARPAL TUNNEL Past Anesthesia/Blood Transfusion Reactions: Motion Sickness, Postoperative Nausea & Vomiting (PONV) Past Psychological History: Anxiety, Bipolar, Depression, PTSD Smoking Status: Current every day smoker Past Alcohol Use History: None Reported Past Drug Use History: Marijuana Additional Drug Use History / Comment(s): TO HOLD 24 HOURS TO PROCEDURE - Past Family History Father Family Medical History: Cancer Mother Family Medical History: Cancer Medications and Allergies Home Medications Medication Instructions Recorded Confirmed Type Meclizine [Antivert] 12.5 mg PO DAILY 09/30/18 01/21/23 History Cyclobenzaprine [Flexeril] 10 mg PO TID PRN 10/01/18 01/21/23 History Ergocalciferol [Vitamin D2 1 cap PO TU 10/01/18 01/21/23 History (DRISDOL)] Ibuprofen [Motrin] 800 mg PO TID PRN 10/01/18 01/21/23 History Albuterol Inhaler [Ventolin Hfa 1 - 2 puff INHALATION Q4HR PRN #1 12/29/18 01/21/23 Rx Inhaler] inhaler Budesonide/Formoterol Fumarate 2 puff INHALATION BID 01/21/23 01/21/23 History [Symbicort 160-4.5 Mcg Inhaler] Allergies Allergy/AdvReac Type Severity Reaction Status Date / Time Mxkvuqg-MUY-BdA Reductase Allergy Anaphylaxis Verified 01/21/23 09:24 Inhibitor [Wuhdflu-Zwp-Gpk Reductase Inhibitor] codeine AdvReac Mild Nausea & Verified 01/21/23 09:24 Vomiting Surgical - Exam - General well developed, well nourished, no distress - Eyes normal ocular movement, no icteric - ENT no hearing loss, no congestion - Neck no masses, trachea midline - Respiratory normal respiratory effort, clear to auscultation - Abdomen Abdomen: soft, non tender, no guarding, no rigid, no rebound - Integumentary no rash, no abnormal pigmentation - Neurologic no disoriented, no combative - Psychiatric oriented to time, oriented to person, oriented to place, speech is normal, memory intact Results - Imaging CT scan - abdomen: report reviewed, image reviewed CT scan - pelvis: report reviewed, image reviewed Assessment and Plan Assessment: Impression: Bilateral renal stones, renal colic. Multiple medical illnesses. Plan: bilateral renoscopy with laser lithotripsy and possible stent placement
--- NOTE | 2023-01-27 08:16 | XR ---
EXAMINATION TYPE: XR KUB DATE OF EXAM: 01/27/2023 Comparison: 09/30/2018, CT 12/28/2022 Clinical History: 52-year-old female N20.1 bilateral renal stones Findings: 5 mm right-sided renal calculus. 5 mm left-sided renal calculus. Scattered mild stool. Nonobstructive bowel gas pattern. Cholecystectomy clips. Mild degenerative spurring of the left hip. No dilated sma ll bowel loops. Impression: A 5 mm nonobstructive calculus seen on either side. Polycystic kidneys seen on patient's CT not well demonstrated radiographically.
[2023-01-27] MEDS ORDERED: DEXAMETHASONE SOD PHOSPHATE 4 MG/ML 1 ML VIAL IV ONE (08:37)
[2023-01-27] MEDS ORDERED: HYDROmorphone 0.5 MG/0.5 ML SYRINGE IVP PRN (08:37)
[2023-01-27] MEDS ORDERED: LIDOCAINE 1% (10MG/ML) FOR IV START INTRADERMA PRN (08:37)
[2023-01-27] MEDS ORDERED: LACTATED RINGERS 1,000 ML IV SCH (08:37)
[2023-01-27] MEDS ORDERED: ONDANSETRON 4 MG/2 ML VIAL IVP ONE ×2 (08:37→12:30)
[2023-01-27] MEDS ORDERED: LACTATED RINGERS 1,000 ML IV ONE ×2 (08:47→10:53)
[2023-01-27] MEDS ORDERED: SCOPOLAMINE 1 MG/72 HR PATCH TRANSDERM ONE (09:17)
[2023-01-27] MEDS ORDERED: LIDOCAINE 4% LTA KIT (4 ML) TOPICAL ONE (09:56)
[2023-01-27] MEDS ORDERED: LIDOCAINE 2% INJ 20 MG/ML (2 ML VIAL) ONE (09:56)
[2023-01-27] MEDS ORDERED: ROCURONIUM 10 MG/ML (5 ML VIAL) IV ONE (09:56)
[2023-01-27] MEDS ORDERED: SUCCINYLCHOLINE CHLORIDE 200 MG/10 ML VIAL IV ONE (09:56)
[2023-01-27] MEDS ORDERED: fentaNYL (PF) 50 MCG/ML 2 ML AMP ONE (09:56)
[2023-01-27] MEDS ORDERED: MIDAZOLAM 2 MG/2 ML VIAL ONE (09:56)
[2023-01-27] MEDS ORDERED: PROPOFOL 10 MG/ML 20 ML VIAL IV ONE (09:56)
--- NOTE | 2023-01-27 11:02 | P.OP ---
Date of Procedure: 01/27/23 Preoperative Diagnosis: Bilateral renal calculi Postoperative Diagnosis: Same Procedure(s) Performed: Cystoscopy with bilateral uretero renoscopy with laser lithotripsy Anesthesia: ALEJANDRO Surgeon: Armando Watson Estimated Blood Loss (ml): 0 Pathology: none sent Condition: stable Disposition: PACU Indications for Procedure: Patient is 52. She has a history of stones. Computed tomography scan shows bilateral renal cysts bilateral renal stones. She is having pain. She comes for bilateral ureteral renoscopy with laser lithotripsy. Alternatives have been discussed Description of Procedure: Patient brought to the operating suite. She's given general anesthetic. She's placed lithotomy position with a sterile prep and drape. Cystoscopy Foroblique lens and 21-[place] sheath shows a normal bladder. The left ureteral orifice is identified and intubated with an 035 wire up into the kidney. Over the wires passed [id number] ureteral reentry sheath up into the left renal pelvis. The inner sheath is removed. I passed the flexible ureteroscope up into the kidney. I go through each calyx systematically. Multiple small Jean Paul's plaques are lasered. There is a 6 mm stone and a midpole calyx on the left side that is broken into tiny fragments and flushed out of the kidney. I then reintroduced the cystoscope and passed an 035 wire up the right ureter into the renal pelvis. Over the wires and passed the same [id number] reentry sheath. I passed the ureteroscope into the kidney and again identifies Jean Paul plaques that are lasered. Identify a 5 mm stone in a right lower pole calyx that is also dusted into sand. There are no remaining fragments. Pullout ureteroscopy on the right side as well as a left were performed and were normal. The bladder is drained the patient is awake and returned recovery in good condition tell her procedure well Impression successful bilateral ureterorenoscopy and laser lithotripsy
[2023-01-27 11:15] VITALS: TEMP 97
--- NOTE | 2023-01-27 11:43 | FL ---
EXAMINATION TYPE: FL guidance operating room DATE OF EXAM: 01/27/2023 FLUOROSCOPY Fluoroscopy time of 11 seconds was used during urologic intervention for bilateral kidney stones. Tot al DAP: 2.87. 4 image/s document/s the procedure.
[2023-01-27] MEDS ORDERED: ONDANSETRON 4 MG/2 ML VIAL ONE (12:23)
[2023-01-27 12:29] VITALS: RESP 16
[2023-01-27 13:36] VITALS: BP 138/85; PULSE 90
== END 2023-01-27 13:36 | disposition home or self-care (01) ==
LOC: OR 07:44
PROVIDERS: ATTEND Urology
DX: N20.0 Calculus of kidney (principal); J45.909 Unspecified asthma, uncomplicated; J44.9 Chronic obstructive pulmonary disease, unspecified; I50.9 Heart failure, unspecified; E78.5 Hyperlipidemia, unspecified; J18.9 Pneumonia, unspecified organism; M79.9 Soft tissue disorder, unspecified; J96.90 Respiratory failure, unspecified, unspecified whether with hypoxia or hypercapnia; H40.9 Unspecified glaucoma; F43.10 Post-traumatic stress disorder, unspecified; M50.30 Other cervical disc degeneration, unspecified cervical region; K91.0 Vomiting following gastrointestinal surgery; F41.9 Anxiety disorder, unspecified; F31.9 Bipolar disorder, unspecified; Z98.891 History of uterine scar from previous surgery; F17.200 Nicotine dependence, unspecified, uncomplicated; Z90.49 Acquired absence of other specified parts of digestive tract; Z98.51 Tubal ligation status; Z98.890 Other specified postprocedural states; Z80.8 Family history of malignant neoplasm of other organs or systems; Z79.1 Long term (current) use of non-steroidal anti-inflammatories (NSAID); Z79.899 Other long term (current) drug therapy; Z79.51 Long term (current) use of inhaled steroids; Z88.8 Allergy status to other drugs, medicaments and biological substances; Z88.5 Allergy status to narcotic agent
CPT/HCPCS: 74018; 52353; C1769; J2250; J0330; J1100; J0690; J2405; J3010; J2704; J1170; J2001

== ENCOUNTER 2023-01-28 11:18 | Emergency (ER) | payer OTHER ==
[2023-01-28 11:35] VITALS: TEMP 98.2
[2023-01-28] MEDS ORDERED: HYDROmorphone 0.5 MG/0.5 ML SYRINGE IVP STA ×2 (11:59→14:33)
[2023-01-28] MEDS ORDERED: ONDANSETRON 4 MG/2 ML VIAL IVP STA (11:59)
[2023-01-28] MEDS ORDERED: SODIUM CHLORIDE 0.9% 500 ML 500 ML IV STA (11:59)
[2023-01-28] MEDS ORDERED: SODIUM CHLORIDE 0.9% 1,000 ML IV STA (11:59)
[2023-01-28] MEDS ORDERED: KETOROLAC 15 MG/ML 1 ML VIAL IVP STA (11:59)
[2023-01-28 12:30] LABS: Basophils % (A) 0 %; Eosinophils # (A) 0.1 k/uL (0-0.7); Eosinophils % (A) 1 %; HCT 47.8 % (34.0-46.0); HGB 16.4 gm/dL (11.4-16.0); Lymphocytes # (A) 1.6 k/uL (1.0-4.8); Lymphocytes % (A) 8 %; MCH 32.3 pg (25.0-35.0); MCHC 34.4 g/dL (31.0-37.0); MCV 93.9 fL (80.0-100.0); Mean Platelet Volume 7.5; Monocytes # (A) 0.8 k/uL (0-1.0); Monocytes % (A) 4 %; Neutrophils # (A) 16.6 k/uL (1.3-7.7); Neutrophils % (A) 87 %; Platelet Count 250 k/uL (150-450); RBC 5.09 m/uL (3.80-5.40); RDW 12.7 % (11.5-15.5); WBC 19.1 k/uL (3.8-10.6)
[2023-01-28 12:43] LABS: Albumin 4.3 g/dL (3.5-5.0); Calcium 9.3 mg/dL (8.4-10.2); Potassium 4.2 mmol/L (3.5-5.1); Total Bilirubin 0.8 mg/dL (0.2-1.3)
--- NOTE | 2023-01-28 13:22 | XR ---
EXAMINATION TYPE: XR KUB DATE OF EXAM: 01/28/2023 1:06 PM INDICATION: Patient age:Female; 52 years old; Reason for study: pain; COMPARISON: CT 12/28/2022, radiograph 01/27/2023 TECHNIQUE: One radiographic view of the abdomen was obtained. FINDINGS: Right upper quadrant cholecystectomy clips left upper quadrant peripherally calcified lesio ns correlating with partially calcified splenic artery aneurysm similar to prior CT measuring up to 2 .8 cm. Known bilateral renal calculi are not well appreciated. There is nonspecific bowel gas pattern . IMPRESSION: 1. Nonspecific bowel gas pattern without radiographic evidence for acute process. 2. Bilateral renal calculi seen one day prior not well visualized could be due to bowel versus postt reatment changes.
--- NOTE | 2023-01-28 13:24 | ED ---
Abdominal Pain HPI - General Chief Complaint: Abdominal Pain Stated Complaint: Post Op Pain & Vomiting Time Seen by Provider: 01/28/23 11:39 Source: patient, RN notes reviewed Mode of arrival: wheelchair Limitations: no limitations - History of Present Illness Initial Comments: 52-year-old female presents emergency Department chief complaint of bilateral flank pain. Patient states she had bilateral nephrolithiasis laser lithotripsy yesterday by Dr. Watson. Patient states that she went home started having increasing pain states pain is intolerable states she does not have any pain meds at home. She has mid to nausea and vomiting associated with the pain. Patient denies any fevers or chills. Patient contacted urology advise come emergency department. - Related Data Home Medications Medication Instructions Recorded Confirmed Meclizine [Antivert] 12.5 mg PO DAILY 09/30/18 01/27/23 Cyclobenzaprine [Flexeril] 10 mg PO TID PRN 10/01/18 01/27/23 Ergocalciferol [Vitamin D2 1 cap PO TU 10/01/18 01/27/23 (DRISDOL)] Ibuprofen [Motrin] 800 mg PO TID PRN 10/01/18 01/27/23 Budesonide/Formoterol Fumarate 2 puff INHALATION BID 01/21/23 01/27/23 [Symbicort 160-4.5 Mcg Inhaler] Previous Rx's Medication Instructions Recorded Albuterol Inhaler [Ventolin Hfa 1 - 2 puff INHALATION Q4HR PRN #1 12/29/18 Inhaler] inhaler HYDROcodone/APAP 5-325MG [[place] 5] 1 each PO Q6HR PRN #12 tab 01/28/23 Ketorolac [Toradol] 10 mg PO Q8HR #15 tab 01/28/23 Ondansetron Odt [Zofran Odt] 4 mg PO Q8HR PRN #10 tab 01/28/23 Sulfamethox-Tmp 800-160Mg [Bactrim 1 each PO Q12HR #14 tab 01/28/23 Ds] Allergies Allergy/AdvReac Type Severity Reaction Status Date / Time Owswawh-VUO-OwW Reductase Allergy Anaphylaxis Verified 01/28/23 11:35 Inhibitor [Dairhke-Llg-Gnr Reductase Inhibitor] codeine AdvReac Mild Nausea & Verified 01/28/23 11:35 Vomiting Review of Systems ROS Statement: Those systems with pertinent positive or pertinent negative responses have been documented in the HPI. ROS Other: All systems not noted in ROS Statement are negative. Past Medical History Past Medical History: Asthma, Heart Failure, COPD, CVA/TIA, Hyperlipidemia, Musculoskeletal Disorder, Pneumonia, Respiratory Disorder Additional Past Medical History / Comment(s): Home O2 at 2L-3L/NC prn, RIGHT RENAL CALCULI, ANEURYSM RT LUNG in the past but patient thinks it may have resolved, DDD, PAIN LT LOWER BACK, herniated discs.vertigo. HEART FAILURE 2016, GLAUCOMA-HAD SURGERY History of Any Multi-Drug Resistant Organisms: CRE, Other MDRO Date of last positivie culture/infection: 12/18/21 MDRO Source:: URINE Past Surgical History: Section, Cholecystectomy, Orthopedic Surgery, Tubal Ligation, Uterine Ablation Additional Past Surgical History / Comment(s): kidney stone removal Past Anesthesia/Blood Transfusion Reactions: Motion Sickness, Postoperative Nausea & Vomiting (PONV) Past Psychological History: Anxiety, Bipolar, Depression, PTSD Smoking Status: Current every day smoker Past Alcohol Use History: None Reported Past Drug Use History: Marijuana - Past Family History Father Family Medical History: Cancer Mother Family Medical History: Cancer General Exam Limitations: no limitations General appearance: alert, in no apparent distress Head exam: Present: atraumatic, normocephalic, normal inspection Eye exam: Present: normal appearance, PERRL, EOMI. Absent: scleral icterus, conjunctival injection, periorbital swelling ENT exam: Present: normal exam, normal oropharynx, mucous membranes moist Neck exam: Present: normal inspection, full ROM. Absent: tenderness, meningismu s, lymphadenopathy Respiratory exam: Present: normal lung sounds bilaterally. Absent: respiratory distress, wheezes, rales, rhonchi, stridor Cardiovascular Exam: Present: regular rate, normal rhythm, normal heart sounds. Absent: systolic murmur, diastolic murmur, rubs, gallop, clicks GI/Abdominal exam: Present: soft, tenderness, normal bowel sounds. Absent: distended, guarding, rebound, rigid Back exam: Present: CVA tenderness (R), CVA tenderness (L) Course Vital Signs 01/28/23 01/28/23 11:32 13:34 Temperature 98.2 F Pulse Rate 72 Respiratory 20 Rate Blood Pressure 136/80 140/80 O2 Sat by Pulse 89 L 91 L Oximetry Medical Decision Making - Medical Decision Making Was pt. sent in by a medical professional or institution ([facility], [employer], urgent care, hospital, or fdc...) When possible be specific @ -Urology Did you speak to anyone other than the patient for history (EMS, parent, family, police, friend...)? What history was obtained from this source @ -No Did you review nursing and triage notes (agree or disagree)? Why? @ -I reviewed and agree with nursing and triage notes Were old charts reviewed (outside hosp., previous admission, EMS record, old EKG, old radiological studies, urgent care reports/EKG's, fdc records)? Report findings @ -Procedure note from yesterday Differential Diagnosis (chest pain, altered mental status, abdominal pain women, abdominal pain men, vaginal bleeding, weakness, fever, dyspnea, syncope, headache, dizziness, GI bleed, back pain, seizure, CVA, palpatations, mental health, musculoskeletal)? @ -Differential Abdominal Pain Women: Appendicitis, Cholecystitis, diverticulosis, ischemic bowel, pancreatitis, hepatitis, UTI, gastroenteritis, AAA, incarcerated hernia, bowel obstruction, constipation, inflammatory bowel, hepatitis, peptic ulcer disease, splenic infarction, perforated viscus, vulvitis, ovarian torsion, PID, kidney stone, placenta abruption, this is not meant to be an all-inclusive liste EKG interpreted by me (3pts min.). @ -As above X-rays interpreted by me (1pt min.). @ -KUB does not show any acute process, prior nephrolithiasis not noted CT interpreted by me (1pt min.). @ -None done U/S interpreted by me (1pt. min.). @ -None done What testing was considered but not performed or refused? (CT, X-rays, U/S, labs)? Why? @ -None What meds were considered but not given or refused? Why? @ -None Did you discuss the management of the patient with other professionals (professionals i.e. [facility] [employer], [employer], lab, RT, psych nurse, drug abuse social worker, cattle trader, teacher, admitting officer, showcase trimmer)? Give summary @ -No Was smoking cessation discussed for >3mins.? @ -No Was critical care preformed (if so, how long)? @ -No Were there social determinants of health that impacted care today? How? (Homelessness, low income, unemployed, alcoholism, drug addiction, tr ansportation, low edu. Level, literacy, decrease access to med. care, longterm, rehab)? @ -No Was there de-escalation of care discussed even if they declined (Discuss DNR or withdrawal of care, Hospice)? DNR status @ -No What co-morbidities impacted this encounter? (DM, HTN, Smoking, COPD, CAD, Cancer, CVA, ARF, Chemo, Hep., AIDS, mental health diagnosis, sleep apnea, morbid obesity)? @ -None Was patient admitted / discharged? Hospital course, mention meds given and route, prescriptions, significant lab abnormalities, going to OR and other pertinent info. @ -Discharge patient's pain is improved. Patient was hydrated, given antiemetics and pain control. Patient will be discharged in stable condition with the management and follow-up. Undiagnosed new problem with uncertain prognosis? @ -No Drug Therapy requiring intensive monitoring for toxicity (Heparin, Nitro, Insulin, Cardizem)? @ -No Were any procedures done? @ -No Diagnosis/symptom? @ -Abdominal pain status post lithotripsy Acute, or Chronic, or Acute on Chronic? @ -Acute Uncomplicated or complicated Uncomplicated] Side effects of treatment? @ -No Exacerbation, Progression, or Severe Exacerbation? @ -No Poses a threat to life or bodily function? How? (Chest pain, [place], [place], pneumonia, PE, COPD, DKA, ARF, appy, cholecystitis, CVA, Diverticulitis, Homicidal, Suicidal, threat to staff... and all critical care pts) @ -No - Lab Data Result diagrams: 01/28/23 12:26 01/28/23 12:26 Lab Results 01/28/23 01/28/23 01/28/23 Range/Units 12:26 12:26 12:26 WBC 19.1 H (3.8-10.6) k/uL RBC 5.09 (3.80-5.40) m/uL Hgb 16.4 H (11.4-16.0) gm/dL Hct 47.8 H (34.0-46.0) % MCV 93.9 (80.0-100.0) fL MCH 32.3 (25.0-35.0) pg MCHC 34.4 (31.0-37.0) g/dL RDW 12.7 (11.5-15.5) % Plt Count 250 (150-450) k/uL MPV 7.5 Neutrophils % 87 % Lymphocytes % 8 % Monocytes % 4 % Eosinophils % 1 % Basophils % 0 % Neutrophils # 16.6 H (1.3-7.7) k/uL Lymphocytes # 1.6 (1.0-4.8) k/uL Monocytes # 0.8 (0-1.0) k/uL Eosinophils # 0.1 (0-0.7) k/uL Basophils # 0.0 (0-0.2) k/uL Sodium 135 L (137-145) mmol/L Potassium 4.2 (3.5-5.1) mmol/L Chloride 103 (98-107) mmol/L Carbon Dioxide 23 (22-30) mmol/L Anion Gap 9 mmol/L BUN 21 H (7-17) mg/dL Creatinine 1.36 H (0.52-1.04) mg/dL Est GFR (CKD-EPI)AfAm 52 (>60 ml/min/1.73 sqM) Est GFR (CKD-EPI)NonAf 45 (>60 ml/min/1.73 sqM) Glucose 142 H (74-99) mg/dL Plasma Lactic Acid Johnathan 1.1 (0.7-2.0) mmol/L Calcium 9.3 (8.4-10.2) mg/dL Total Bilirubin 0.8 (0.2-1.3) mg/dL AST 23 (14-36) U/L ALT 23 (4-34) U/L Alkaline Phosphatase 77 (38-126) U/L Total Protein 7.0 (6.3-8.2) g/dL Albumin 4.3 (3.5-5.0) g/dL Lipase 101 (23-300) U/L Urine Color Urine Appearance (Clear) Urine pH (5.0-8.0) Ur Specific [place] (1.001-1.035) Urine Protein (Negative) Urine Glucose (UA) (Negative) Urine Ketones (Negative) Urine Blood (Negative) Urine Nitrite (Negative) Urine Bilirubin (Negative) Urine Urobilinogen (<2.0) mg/dL Ur Leukocyte Esterase (Negative) Urine RBC (0-5) /hpf Urine WBC (0-5) /hpf Ur Squamous Epith Cells (0-4) /hpf Amorphous Sediment (None) /hpf Urine Bacteria (None) /hpf 01/28/23 Range/Units 15:05 WBC (3.8-10.6) k/uL RBC (3.80-5.40) m/uL Hgb (11.4-16.0) gm/dL Hct (34.0-46.0) % MCV (80.0-100.0) fL MCH (25.0-35.0) pg MCHC (31.0-37.0) g/dL RDW (11.5-15.5) % Plt Count (150-450) k/uL MPV Neutrophils % % Lymphocytes % % Monocytes % % Eosinophils % % Basophils % % Neutrophils # (1.3-7.7) k/uL Lymphocytes # (1.0-4.8) k/uL Monocytes # (0-1.0) k/uL Eosinophils # (0-0.7) k/uL Basophils # (0-0.2) k/uL Sodium (137-145) mmol/L Potassium (3.5-5.1) mmol/L Chloride (98-107) mmol/L Carbon Dioxide (22-30) mmol/L Anion Gap mmol/L BUN (7-17) mg/dL Creatinine (0.52-1.04) mg/dL Est GFR (CKD-EPI)AfAm (>60 ml/min/1.73 sqM) Est GFR (CKD-EPI)NonAf (>60 ml/min/1.73 sqM) Glucose (74-99) mg/dL Plasma Lactic Acid Johnathan (0.7-2.0) mmol/L Calcium (8.4-10.2) mg/dL Total Bilirubin (0.2-1.3) mg/dL AST (14-36) U/L ALT (4-34) U/L Alkaline Phosphatase (38-126) U/L Total Protein (6.3-8.2) g/dL Albumin (3.5-5.0) g/dL Lipase (23-300) U/L Urine Color Light Red Urine Appearance Clear (Clear) Urine pH 6.0 (5.0-8.0) Ur Specific [place] 1.004 (1.001-1.035) Urine Protein 1+ H (Negative) Urine Glucose (UA) Negative (Negative) Urine Ketones Negative (Negative) Urine Blood Large H (Negative) Urine Nitrite Negative (Negative) Urine Bilirubin Negative (Negative) Urine Urobilinogen <2.0 (<2.0) mg/dL Ur Leukocyte Esterase Moderate H (Negative) Urine RBC 43 H (0-5) /hpf Urine WBC 45 H (0-5) /hpf Ur Squamous Epith Cells 1 (0-4) /hpf Amorphous Sediment Rare H (None) /hpf Urine Bacteria Occasional H (None) /hpf Disposition Clinical Impression: Status post laser lithotripsy of ureteral calculus, Abdominal pain Disposition: HOME SELF-CARE Condition: Stable Instructions (If sedation given, give patient instructions): Abdominal Pain (ED) Additional Instructions: Please return to the Emergency Department if symptoms worsen or any other concerns. Prescriptions: Sulfamethox-Tmp 800-160Mg [Bactrim Ds] 1 each PO Q12HR #14 tab HYDROcodone/APAP 5-325MG [[place] 5] 1 each PO Q6HR PRN #12 tab PRN Reason: Pain Ketorolac [Toradol] 10 mg PO Q8HR #15 tab Ondansetron Odt [Zofran Odt] 4 mg PO Q8HR PRN #10 tab PRN Reason: Nausea Is patient prescribed a controlled substance at d/c from ED?: Yes When asked, does pt state using other controlled substances?: No If prescribed controlled substance>3 days was MAPS reviewed?: Prescribed <3 Days If opioid is for acute pain is fill amount 7 days or less?: Yes If Rx opioid, was Start Talking consent form obtained?: Yes Referrals: Blanca Enriquez MD [Primary Care Provider] - 1-2 days Time of Disposition: 16:04
[2023-01-28 15:23] LABS: Amorphous Sediment,Urine Rare /hpf; Appearance,Urine Clear (Clear); Bacteria,Urine Occasional /hpf; Bilirubin,Urine Negative (Negative); Blood,Urine Large (Negative); Color,Urine Light Red; Glucose,Urine (UA) Negative (Negative); Ketones,Urine Negative (Negative); Leukocyte Esterase,Urine Moderate (Negative); Nitrite,Urine Negative (Negative); Protein,Urine 1+ (Negative); RBC,Urine 43 /hpf (0-5); Specific Gravity,Urine 1.004 (1.001-1.035); Squamous Epithelial Cell,Urine 1 /hpf (0-4); Urobilinogen,Urine <2.0 mg/dL (<2.0); WBC,Urine 45 /hpf (0-5)
[2023-01-28 16:29] VITALS: BP 126/87; PULSE 90; RESP 18
== END 2023-01-28 17:22 | disposition home or self-care (01) ==
LOC: EC 11:18
DX: R10.9 Unspecified abdominal pain (principal); Z98.890 Other specified postprocedural states; J44.9 Chronic obstructive pulmonary disease, unspecified; I50.9 Heart failure, unspecified; Z86.73 Personal history of transient ischemic attack (TIA), and cerebral infarction without residual deficits; F41.9 Anxiety disorder, unspecified; F31.9 Bipolar disorder, unspecified; F17.200 Nicotine dependence, unspecified, uncomplicated; F12.90 Cannabis use, unspecified, uncomplicated; Z90.49 Acquired absence of other specified parts of digestive tract; Z88.5 Allergy status to narcotic agent; Z88.8 Allergy status to other drugs, medicaments and biological substances; Z79.899 Other long term (current) drug therapy; Z79.51 Long term (current) use of inhaled steroids
CPT/HCPCS: 36415; 80053; 83605; 83690; 85025; 81001; 87086; 74018; 99284; 96374; 96375 ×2; 96376; 96361 ×2; J2405; J1885; J1170

== ENCOUNTER → 2023-03-12 | Outpatient (CLI) | payer OTHER ==
--- NOTE | 2023-03-12 15:09 | CTL ---
EXAMINATION TYPE: CT Low Dose Lung DATE OF EXAM ORDERED: 03/12/2023 HISTORY: Lung cancer screening CT DLP: 127.[address] CTDI: 4.0 mGy Automated exposure control for dose reduction was used. COMPARISON: 09/25/2021 TECHNIQUE: Low dose computed tomography scan was performed through the chest at 1 mm thick sections a nd reconstructed images in multiple planes at 1 mm and [address] DIAGNOSTIC QUALITY: Satisfactory FINDINGS: Exam is limited due to the patient's body habitus. The prominent pulmonary vessel in the right lower lobe medially is again seen and possibly represents a venous varix. It is stable compared to the prior study. There is a 5 mm pulmonary nodule in the right lower lobe which is stable. No new or suspicious pulmonary nodules are seen. There is no airspace consolidation or abnormal interstitial density. There is mild pleural thickening in the left upper lobe posteriorly which is stable. There is no pleural effusion. The great vessels chest are normal and there is no mediastinal, hilar or axillary adenopathy. There is scanning the upper abdomen feels no gross abnormality. The osseous structures are intact. IMPRESSION: 1. Lung RADS category 2 benign findings as described above. Continue routine screening yearly interva ls 2. No acute cardiopulmonary disease.
== END | disposition home or self-care (01) ==
LOC: RADCTMAIN 13:28
PROVIDERS: ATTEND Family Medicine
DX: Z12.2 Encounter for screening for malignant neoplasm of respiratory organs (principal); F17.210 Nicotine dependence, cigarettes, uncomplicated
CPT/HCPCS: 71271